=== PATIENT | male | born 1945 | race Caucasian/White ===

== ENCOUNTER 2017-05-03 12:30 | Inpatient (IN) ==
[2017-05-03] MEDS ORDERED: IOPAMIDOL 100 ML BOTTLE IJ ONE (12:31)
[2017-05-03] MEDS ORDERED: 0.9 % SODIUM CHLORIDE 1,000 ML IV ONE ×2 (12:33→15:00)
[2017-05-03] MEDS ORDERED: PIPERACILLIN SODIUM/TAZOBACTAM 4.5 GM in DEXTROSE 5% IN WATER 50 ML IV ONE (12:47)
--- NOTE | 2017-05-03 12:47 | Emergency Department Note ---
SOB HPI - General Chief Complaint: Shortness of Breath/Dyspnea Stated Complaint: sob Time Seen by Provider: 05/03/17 12:33 Source: patient Mode of arrival: ambulatory Limitations: no limitations - History of Present Illness 71 year old male presenting with acute onset shortness of breath, nausea and sharp pain in center of chest and back. Patient underwent urologic surgery on for resection of bladder tumor in [place], with catheter removal yesterday. Was sitting up after taking a Hydrocodone at roughly 11:45 when he developed sudden onset shortness of breath, increased work of breathing, and panic sensation. No history of DVT in the past. - Related Data Home Medications Medication Instructions Recorded Confirmed Freestyle flash test strips MISCELLANE .COMPLEX 11/01/14 04/12/17 aspirin 81 mg tablet,delayed 81 mg PO QDAY tab 11/01/14 04/12/17 release meloxicam 15 mg tablet 15 mg PO QDAY tab 11/01/14 04/12/17 multivitamin PO 11/01/14 04/12/17 Calcium Carbonate/Vitamin D3 See Dose Instructions PO .COMPLEX 03/21/15 04/12/17 [Calcium 500-Vit D3 400 Tablet] tab amoxicillin 500 mg tablet 2,000 mg PO .COMPLEX tab 03/21/15 04/12/17 Methotrexate Sodium [Methotrexate] 25 mg PO QWEEK tab 04/18/16 04/12/17 ascorbic acid (vitamin C) 1,000 mg 1,000 mg PO QDAY tab 04/18/16 04/12/17 tablet cyanocobalamin (vit B-12) 5,000 5,000 mcg SUBLINGUAL QDAY 04/18/16 04/12/17 mcg sublingual tablet alfuzosin ER 10 mg tablet,extended 10 mg PO QDAY 30 Days #30 tab 08/16/16 release 24 hr ipratropium bromide 42 mcg (0.06 1 spray INTRANASAL QID 30 Days ml 08/16/1612/20 %) nasal spray Oxygen at HS 1 pkg .ROUTE .MEDSUPPLY 05/03/17 05/03/17 Pen Needle, Diabetic [Unifine 0 unit .ROUTE .MEDSUPPLY 05/03/17 05/03/17 Pentips Plus] Previous Rx's Medication Instructions Recorded simvastatin 20 mg tablet 20 mg PO QPM #90 tab 05/21/16 metformin ER 500 mg 1,000 mg PO QDAY #180 tab 09/03/16 tablet,extended release 24hr omeprazole 40 mg capsule,delayed 40 mg PO QDAY #90 cap 09/03/16 release spironolactone 25 mg tablet 25 mg PO BID 90 Days #180 tab 11/05/16 glipizide ER 5 mg tablet, extended 5 mg PO BID #180 tab 11/27/16 release 24 hr budesonide-formoterol HFA 160 2 puff INHALATION BID #10.2 g 04/12/17 mcg-4.5 mcg/actuation aerosol inhaler hydrocodone 10 mg-acetaminophen 1 tab PO BID PRN #90 tab 04/12/17 325 mg tablet losartan 50 mg tablet 50 mg PO QDAY 90 Days #90 tab 04/15/17 duloxetine 60 mg capsule,delayed 60 mg PO QDAY #90 cap 04/22/17 release insulin detemir 100 unit/mL (3 mL) 25 unit SUB-Q QDAY #22.5 ml 05/03/17 subcutaneous pen Allergies Allergy/AdvReac Type Severity Reaction Status Date / Time gabapentin AdvReac Severe Swelling Verified 04/12/17 11:32 Review of Systems All systems ED: reviewed and negative except as stated. Past Medical History - Past Medical History Attestation: Yes: The following information was validated with the patient. Source: nursing notes reviewed Medical history: Reports: other Surgical history ED: Reports: knee replacement - Social History smoking status: Former smoker Physical Exam Limitations: no limitations General appearance: alert, anxious, in distress (increased work of breathing) Head: atraumatic, normocephalic Eye: Present: normal appearance, PERRL, EOMI ENT: normal exam, normal oropharynx, mucous membranes dry Neck: Present: normal inspection, full ROM Chest: Present: normal inspection, symmetric chest wall rise Respiratory: Present: respiratory distress, wheezes, accessory muscle use, prolonged expiratory phase Cardiovascular: Present: tachycardia, normal heart sounds. Absent: systolic murmur, diastolic murmur, rubs, gallop Abdominal: Present: soft, distention, tenderness. Absent: guarding Abdominal tenderness: Present: epigastrium, mild Extremities: Present: normal inspection, full ROM. Absent: tenderness Course Vital Signs Temperature 101.6 F H 05/03/17 12:30 Pulse Rate 137 H 05/03/17 12:30 Respiratory Rate 18 05/03/17 12:30 Blood Pressure 177/87 05/03/17 12:30 Pulse Oximetry (%) 91 05/03/17 12:30 Temperature 103.2 F H 05/03/17 14:37 Pulse Rate 138 H 05/03/17 14:32 Respiratory Rate 20 05/03/17 14:32 Blood Pressure 107/61 05/03/17 14:32 Pulse Oximetry (%) 95 05/03/17 14:32 Shortness of Breath/Dyspnea - [facility] Narrative Medical decision making narrative: Wells PE score 9, indicating high probability of PE. Underwent CT angiogram which was negative for acute pulmonary embolism. Patient met SIRS criteria with temp elevation to 101.3, tachycardia, started on Zosyn 4.5g IV once, and given Rocephin 2g IV. Patient demonstrating leukopenia, 3.8 with elevated venous lactic acid. Given 1L NS bolus, admitted for urosepsis in serious condition, Dr. Ring hospitalist who accepted admission at 14:45 to telemetry unit. - Lab Data Lab results reviewed: Yes I reviewed the patient's lab results. Result diagrams: 05/03/17 12:54 05/03/17 12:53 Lab Results 05/03/17 05/03/17 05/03/17 Range/Units 12:53 12:54 12:54 WBC 3.1 L (4.5-11.0) K/mcL RBC 4.51 (4.50-5.90) M/mcL Hgb 13.9 (13.5-16.5) g/dL Hct 41.5 (41.0-55.0) % POC Hct 44.0 (41.0-55.0) % MCV 92.0 (80.0-100.0) fL MCH 30.8 (26.0-34.0) pg MCHC 33.4 (31.0-36.0) g/dL RDW 16.3 H (11.5-14.5) % Plt Count 154 (140-440) K/mcL MPV 7.8 (7.4-10.4) fL Gran % 79.1 H (38.0-78.0) % Lymph % (Auto) 16.9 (15.5-49.0) % [place] % (Auto) 0.4 L (1.0-12.0) % Eos % (Auto) 3.4 (0.0-7.0) % Baso % (Auto) 0.2 (0.0-2.0) % Gran # 2.5 (1.8-8.0) K/mcL Lymph # (Auto) 0.5 L (1.5-4.8) K/mcL [place] # (Auto) 0 L (0.1-0.9) K/mcL Eos # (Auto) 0.1 (0.0-0.7) K/mcL Baso # (Auto) 0 (0.0-0.3) K/mcL PT 13.0 (11.9-14.5) sec INR 1.0 (0.9-1.1) D-Dimer 0.40 (0.00-0.40) ug/ml VBG Lactic Acid (0.5-2.2) mmol/L POC Sodium 136 (133-145) mmol/L Sodium 134 (133-145) mmol/L POC Potassium 4.5 (3.3-5.1) mmol/L Potassium 4.6 (3.3-5.1) mmol/L POC Chloride 96 (96-108) mmol/L Chloride 93 L (96-108) mmol/L Carbon Dioxide 22 (22-30) mmol/L POC Total CO2 27 (22-30) mmol/L Anion Gap 19.0 H (8-16) POC BUN 31 H (8-23) mg/dl BUN 26 H (8-23) mg/dl Creatinine 0.9 (0.7-1.2) mg/dl POC Creatinine 0.8 (0.7-1.2) mg/dl GFR Calculation 87 Glucose 232 H (70-105) mg/dL POC Glucose 224 H (70-105) mg/dL Calcium 9.4 (8.6-10.4) mg/dl POC WB Ioniz Calcium 1.21 (1.16-1.32) mmol/L Total Bilirubin 0.3 (0.0-1.0) mg/dL AST 19 (0-37) U/l ALT 18 (0-40) U/l Alkaline Phosphatase 73 (39-117) U/L Total Creatine Kinase 95 (24-195) IU/L CK-MB (CK-2) 1.7 (0-4.9) ng/ml Troponin T (0-0.03) ng/ml Total Protein 7.2 (5.9-8.4) gm/dL Albumin 4.3 (3.2-5.2) gm/dL Globulin 2.9 (2.2-3.7) gm/dL Albumin/Globulin Ratio 1.5 (1.0-2.3) Lipase 15 (7-60) U/L Urine Color Urine Appearance Urine pH (5.0-9.0) Ur Specific [place] (1.000-1.035) Urine Protein (NEG) mg/dL Urine Glucose (UA) (NEG) mg/dL Urine Ketones (NEG) mg/dL Urine Occult Blood (<0.03) mg/dL Urine Nitrate (NEG) Urine Bilirubin (NEG) mg/dL Urine Urobilinogen (NEG) mg/dL Ur Leukocyte Esterase (NEG) /uL Urine RBC (0-1) /hpf Urine WBC (0-4) /hpf Ur Squamous Epith Cells (0-4) /hpf Urine Bacteria (0) /hpf Urine Mucus (0) /hpf Ur Culture Indicated? 05/03/17 05/03/17 05/03/17 Range/Units 12:54 12:54 13:15 WBC (4.5-11.0) K/mcL RBC (4.50-5.90) M/mcL Hgb (13.5-16.5) g/dL Hct (41.0-55.0) % POC Hct (41.0-55.0) % MCV (80.0-100.0) fL MCH (26.0-34.0) pg MCHC (31.0-36.0) g/dL RDW (11.5-14.5) % Plt Count (140-440) K/mcL MPV (7.4-10.4) fL Gran % (38.0-78.0) % Lymph % (Auto) (15.5-49.0) % [place] % (Auto) (1.0-12.0) % Eos % (Auto) (0.0-7.0) % Baso % (Auto) (0.0-2.0) % Gran # (1.8-8.0) K/mcL Lymph # (Auto) (1.5-4.8) K/mcL [place] # (Auto) (0.1-0.9) K/mcL Eos # (Auto) (0.0-0.7) K/mcL Baso # (Auto) (0.0-0.3) K/mcL PT (11.9-14.5) sec INR (0.9-1.1) D-Dimer (0.00-0.40) ug/ml VBG Lactic Acid 3.6 H (0.5-2.2) mmol/L POC Sodium (133-145) mmol/L Sodium (133-145) mmol/L POC Potassium (3.3-5.1) mmol/L Potassium (3.3-5.1) mmol/L POC Chloride (96-108) mmol/L Chloride (96-108) mmol/L Carbon Dioxide (22-30) mmol/L POC Total CO2 (22-30) mmol/L Anion Gap (8-16) POC BUN (8-23) mg/dl BUN (8-23) mg/dl Creatinine (0.7-1.2) mg/dl POC Creatinine (0.7-1.2) mg/dl GFR Calculation Glucose (70-105) mg/dL POC Glucose (70-105) mg/dL Calcium (8.6-10.4) mg/dl POC WB Ioniz Calcium (1.16-1.32) mmol/L Total Bilirubin (0.0-1.0) mg/dL AST (0-37) U/l ALT (0-40) U/l Alkaline Phosphatase (39-117) U/L Total Creatine Kinase (24-195) IU/L CK-MB (CK-2) (0-4.9) ng/ml Troponin T < 0.01 (0-0.03) ng/ml Total Protein (5.9-8.4) gm/dL Albumin (3.2-5.2) gm/dL Globulin (2.2-3.7) gm/dL Albumin/Globulin Ratio (1.0-2.3) Lipase (7-60) U/L Urine Color Yellow Urine Appearance Cloudy Urine pH 6.0 (5.0-9.0) Ur Specific [place] 1.021 (1.000-1.035) Urine Protein 100 A (NEG) mg/dL Urine Glucose (UA) >=500 A (NEG) mg/dL Urine Ketones 5/tr A (NEG) mg/dL Urine Occult Blood 0.03 A (<0.03) mg/dL Urine Nitrate Neg (NEG) Urine Bilirubin Neg (NEG) mg/dL Urine Urobilinogen Neg (NEG) mg/dL Ur Leukocyte Esterase 500 A (NEG) /uL Urine RBC 59 H (0-1) /hpf Urine WBC > 182 H (0-4) /hpf Ur Squamous Epith Cells 0 (0-4) /hpf Urine Bacteria Few A (0) /hpf Urine Mucus Many A (0) /hpf Ur Culture Indicated? Yes - Radiology Data Radiology results reviewed: Yes I reviewed the patient's radiology results. Disposition Pt seen by LINEN ROOM WORKER/PA only: No Clinical Impression: Sepsis Qualifiers: Sepsis type: Escherichia coli Qualified Code(s): A41.51 - Sepsis due to Escherichia coli [E. coli] Disposition: Xfer As Inpt ([facility]) Condition: Serious Referrals: Herve Saldaña MD [Primary Care Provider] -
[2017-05-03] MEDS ORDERED: PIPERACILLIN SODIUM/TAZOBACTAM 4.5 GM in 0.9 % SODIUM CHLORIDE 100 ML IV ONE (13:00)
[2017-05-03 13:25] LABS: Basophils # (Auto) 0 K/mcL (0.0-0.3); Basophils % (Auto) 0.2 % (0.0-2.0); Eosinophils # (Auto) 0.1 K/mcL (0.0-0.7); Eosinophils % (Auto) 3.4 % (0.0-7.0); Granulocytes % (Auto) 79.1 % (38.0-78.0); Lymphocytes # (Auto) 0.5 K/mcL (1.5-4.8); Lymphocytes % (Auto) 16.9 % (15.5-49.0); Mean Corpuscular HGB Conc 33.4 g/dL (31.0-36.0); Mean Corpuscular Hemoglobin 30.8 pg (26.0-34.0); Monocytes # (Auto) 0 K/mcL (0.1-0.9); Monocytes % (Auto) 0.4 % (1.0-12.0); Platelet Count 154 K/mcL (140-440); RBC 4.51 M/mcL (4.50-5.90); Red Cell Distribution Width 16.3 % (11.5-14.5)
[2017-05-03 13:52] LABS: Appearance,Urine CLOUDY; Bacteria,Urine FEW /hpf (0); Bilirubin,Urine NEG (NEG); Color,Urine YELLOW; Glucose,Urine (UA) >=500 mg/dL (NEG); Leukocyte Esterase,Urine 500 /uL (NEG); Mucus,Urine MANY /hpf (0); Nitrate,Urine NEG (NEG); Protein,Urine 100 mg/dL (NEG); Specific Gravity,Urine 1.021 (1.000-1.035); Urine Blood 0.03 mg/dL (<0.03); Urine RBC 59 /hpf (0-1); Urine Squamous Epithelial Cell 0 /hpf (0-4); Urine WBC > 182 /hpf (0-4); Urobilinogen,Urine NEG (NEG)
[2017-05-03] MEDS ORDERED: cefTRIAXone 2 GM VIAL IV ONE (13:55)
[2017-05-03 13:57] LABS: ALT/SGPT 18 U/l (0-40); Albumin 4.3 gm/dL (3.2-5.2); Albumin/Globulin Ratio 1.5 (1.0-2.3); Alkaline Phosphatase 73 U/L (39-117); Blood Urea Nitrogen 26 mg/dl (8-23); Creatine Kinase 95 IU/L (24-195); Creatine Kinase MB 1.7 ng/ml (0-4.9); Lipase 15 U/L (7-60)
--- NOTE | 2017-05-03 14:11 | Cat Scan Report ---
CLINICAL INFORMATION: Reason for Exam:sob, back pain COMPARISON: 03/22/17 TECHNIQUE: Axial images obtained through the chest. intravenous contrast administration was administered, and scanning was performed during pulmonary arterial phase. Sagittally and coronally reformatted images were obtained. MIP reformatted images. FINDINGS: The pulmonary arteries are normal with no intraluminal filling defects. The aorta is normal in caliber. There are scattered plaques along the wall of the aorta as well as within the coronary arteries. The overall heart size is normal. The lungs are clear with no mass or infiltrate. Minor dependent atelectasis is present posteriorly in the right lower lobe. No pleural effusion or abnormally enlarged lymph nodes are present. There has been no significant change from the prior exam. There is degenerative disc disease and arthritis throughout the thoracic spine. No lytic or blastic metastasis are present. There is an old stable mild wedge compression deformity at T12. IMPRESSION: No acute abnormality Dr. Arthur was called with the results Interpreted and Authenticated by: Ken Castro 05/03/17
[2017-05-03] MEDS ORDERED: ACETAMINOPHEN 325 MG TABLET PO ONE (14:33)
[2017-05-03] MEDS ORDERED: ONDANSETRON 4 MG/2 ML VIAL IV PRN ×2 (14:45→17:13)
[2017-05-03] MEDS ORDERED: DEXTROSE 31 GM ORAL.SUSP PO PRN (17:13)
[2017-05-03] MEDS ORDERED: DEXTROSE 50% 50 ML VIAL IV PRN (17:13)
[2017-05-03] MEDS: 0.9 % SODIUM CHLORIDE 1,000 ML IV SCH (17:53)
[2017-05-03] MEDS: INSULIN LISPRO 1 UNIT/0.01 ML UNIT SQ SCH ×2 (19:08→21:03)
[2017-05-03] MEDS ORDERED: HYDROcodone/APAP 10/325MG TABLET PO PRN (19:28)
--- NOTE | 2017-05-03 19:30 | Internal Med History&Physical ---
Medical - H&P: HPI Patient information: Note initiated : 05/03/17 at 7:28 pm Service Date, if different from initiated Date: [] Patient: Grayson Davila a 71 y/o M admitted on 05/03/17 for sob. Chief Complaint: nausea, dyspnea, chills. History of present illness: Mr. Davila is a 71 year old M with a history of hypertension, immune disease/ arteritis, COPD with chronic nocturnal hypoxia on oxygen, type 2 diabetes, bladder cancer status post cystoscopic resection on April 23 who presents with acute onset of symptoms. The patient had cystoscopy with resection of bladder tumors which were discovered after he had hematuria. This was done on April 23. Given his history of enlarged prostate, Singletary catheter was left in place for a week. He was seen in follow-up yesterday and Barber in the Singletary catheter was removed. He was on antibiotics for the first 5 days of his catheter being in place. He states that he did have a little bit of discharge around the urethral meatus while the catheter was in place. He did well afterwards. He is up about 5 times a night voiding. About 11:30 this morning he felt like he needed to have a bowel movement, walked in the bathroom, as he sat on the commode he had the onset of severe lower back pain running across the back just above the buttocks. He developed nausea but did not have emesis. He came in to the living room, to lay down. His noted that his lips had a bluish tint to them. He had chills and was shaking so badly she is unable to get an accurate blood pressure. I received a history of him having some pain in the center of the chest, however the patient denies having any chest pain. Because of his symptoms, his drove him to the emergency department as a live just a few minutes away, by 12:30 he was in the ED. Upon arrival, the patient was febrile with a temperature to 100.5, tachycardic with a pulse 130-140, with oxygen saturations in the low 90s. Given the history of chest pain, there is concern for PE, which was ruled out by CT angiogram. However, further evaluation revealed leukopenia as well as a floridly abnormal urine analysis. His lactate was elevated at 3.8. He was started on treatment for sepsis from presumptive urinary source. Patient had been doing well up until the acute events of today. He does have some dyspnea with exertion. He does have some chronic neuropathic pains, attributed to his arteritis. He does use oxygen at night, 2 L/m due to hypoxia from underlying COPD. He's had no diarrhea, no abdominal pain up until the acute events of today. As noted he had nausea, no emesis. No headache. He did not feel feverish at home, but he did have chills as noted. In the ED, he received fluid boluses, antibiotics, and is being admitted to the ICU on telemetry. Review of systems: Except as noted in history of present illness, the remainder of a 12 point review of systems is negative. Medical - H&P: PMH Medical history: Hypertension Type 2 diabetes with neuropathy Hypercholesterolemia Bladder cancer BPH with obstructive uropathy symptoms Gastroesophageal reflux disease with Wolfe's esophagus on recent EGD Autoimmune disease, initially diagnosed as giant cell arteritis, on weekly methotrexate Pulmonary hypertension COPD Nocturnal hypoxic respiratory failure, on 2 L oxygen at night History of zoster History of atrial fibrillation associated with sepsis in approximately 2009, resolved History of CVAs Dupuytren's contracture of right hand (Chronic) Parotitis (Acute) Obesity (Chronic) Inflammatory polyarthropathy (Chronic) Anemia (Chronic) Ulnar neuropathy (Chronic) Trochanteric bursitis (Chronic) Personal history of testicular cancer (Resolved) Spinal stenosis (Chronic) Rhinitis, allergic (Chronic) Chronic hoarseness (Chronic) Elevated PSA (Chronic), s/p biopsy Degeneration of cervical intervertebral disc (Chronic) Degeneration of lumbar or lumbosacral intervertebral disc (Chronic) Surgical history: History of tonsillectomy (Resolved), 1962 History of repair of rotator cuff (Resolved), 1989 History of prostate biopsy (Resolved), 2010, 2016, benign History of orchiectomy (Resolved), left, 1986 History of laryngoscopy (Resolved) History of knee replacement procedure of right knee (Resolved), 2014 History of hernia surgery (Resolved) History of esophagogastroduodenoscopy (Resolved) History of colonoscopy (Resolved) History of carpal tunnel release (Resolved), 2007 Hx of open brain biopsy (Resolved), 1997 S/P arthroscopic surgery of left knee (Resolved), 2014 History of left knee replacement (Resolved), 2015 Pertinent family history: Father had CAD and DM; Mother had asthma; brother and sister with HTN. Social history: Quit smoking 20 years ago. Rare alcohol use. Lives wit his . Medical - H&P: Meds Home Medications Medication Instructions Recorded Confirmed Type Freestyle flash test strips 1 each MISCELLANE .COMPLEX 11/01/14 05/03/17 History aspirin 81 mg tablet,delayed 81 mg PO QDAY tab 11/01/14 05/03/17 History release meloxicam 15 mg tablet 15 mg PO QDAY tab 11/01/14 05/03/17 History multivitamin 1 tab PO DAILY 11/01/14 05/03/17 History Calcium Carbonate/Vitamin D3 See Dose Instructions PO BID tab 03/21/15 History [Calcium 500-Vit D3 400 Tablet] amoxicillin 500 mg tablet 2,000 mg PO .COMPLEX tab 03/21/15 05/03/17 History Methotrexate Sodium [Methotrexate] 25 mg PO QWEEK tab 04/18/16 05/03/17 History ascorbic acid (vitamin C) 1,000 mg 1,000 mg PO QDAY tab 04/18/16 05/03/17 History tablet cyanocobalamin (vit B-12) 5,000 500 mcg SUBLINGUAL QDAY 04/18/16 05/03/17 History mcg sublingual tablet simvastatin 20 mg tablet 20 mg PO QPM #90 tab 05/21/16 05/03/17 Rx alfuzosin ER 10 mg tablet,extended 10 mg PO QDAY 30 Days #30 tab 08/16/16 History release 24 hr ipratropium bromide 42 mcg (0.06 1 spray INTRANASAL QID 30 Days ml 08/16/16 History %) nasal spray metformin ER 500 mg 1,000 mg PO QDAY #180 tab 09/03/16 05/03/17 Rx tablet,extended release 24hr omeprazole 40 mg capsule,delayed 40 mg PO QDAY #90 cap 09/03/16 05/03/17 Rx release spironolactone 25 mg tablet 25 mg PO BID 90 Days #180 tab 11/05/16 05/03/17 Rx glipizide ER 5 mg tablet, extended 5 mg PO BID #180 tab 11/27/16 05/03/17 Rx release 24 hr budesonide-formoterol HFA 160 2 puff INHALATION BID #10.2 g 04/12/17 05/03/17 Rx mcg-4.5 mcg/actuation aerosol inhaler hydrocodone 10 mg-acetaminophen 1 tab PO BID PRN #90 tab 04/12/17 05/03/17 Rx 325 mg tablet losartan 50 mg tablet 50 mg PO QDAY 90 Days #90 tab 04/15/17 05/03/17 Rx duloxetine 60 mg capsule,delayed 60 mg PO QDAY #90 cap 04/22/17 05/03/17 Rx release Oxygen at HS 1 pkg .ROUTE .MEDSUPPLY 05/03/17 05/03/17 History Pen Needle, Diabetic [Unifine 0 unit .ROUTE .MEDSUPPLY 05/03/17 05/03/17 History Pentips Plus] insulin detemir 100 unit/mL (3 mL) 25 unit SUB-Q QDAY #22.5 ml 05/03/17 Rx subcutaneous pen Allergies Allergy/AdvReac Type Severity Reaction Status Date / Time gabapentin AdvReac Severe Swelling Verified 04/12/17 11:32 Medical - H&P: Exam - Constitutional Vitals: Temp Pulse Resp BP Pulse Ox 98.4 F 125 H 16 116/62 96 05/03/17 16:10 05/03/17 16:16 05/03/17 16:10 05/03/17 16:16 05/03/17 18:37 Exam: General: Alert, in no acute distress HEENT: Normocephalic. Pupils are equally round and reactive to light. Sclera are anicteric. No conjunctival injection. Oropharynx is with moist mucous membranes, no lip or gum lesions. Tongue is midline. Neck: Supple, no meningismus. No thyromegaly. Chest: Clear to auscultation bilaterally with no rales or wheezes. No accessory muscle use. Cardiovascular: Regular rate and rhythm without murmur gallop or rub. Carotid pulses are 2+ without bruit. There is no lower extremity edema. JVP is normal. Abdomen: Soft, active bowel sounds, mild, diffuse tenderness without guarding or rebound. No hepatosplenomegaly. Skin: Warm, dry. No rash. Skin turgor is normal Musculoskeletal: No joint erythema or tenderness. Normal range of motion in the upper and lower extremities. Strength 5/5 in upper and lower extremities. Digits without cyanosis or clubbing. Neuro: Alert, oriented X3. Cranial nerves II through XII grossly intact. Sensation decreased to light touch in LE's. Psychiatric: Affect and orientation are normal. Good insight. Medical - H&P: Reslt - Labs CBC & Chem 7: 05/03/17 12:54 05/03/17 12:53 Labs: Short CBC 05/03/17 Range/Units 12:54 WBC 3.1 L (4.5-11.0) K/mcL Hgb 13.9 (13.5-16.5) g/dL Hct 41.5 (41.0-55.0) % Plt Count 154 (140-440) K/mcL BMP 05/03/17 12:53 Sodium 134 Potassium 4.6 Chloride 93 L Carbon Dioxide 22 BUN 26 H Creatinine 0.9 Glucose 232 H Calcium 9.4 Cardiac Enzymes 05/03/17 05/03/17 Range/Units 12:53 12:54 Total Creatine Kinase 95 (24-195) IU/L CK-MB (CK-2) 1.7 (0-4.9) ng/ml Troponin T < 0.01 (0-0.03) ng/ml Liver Function 05/03/17 Range/Units 12:53 Total Bilirubin 0.3 (0.0-1.0) mg/dL AST 19 (0-37) U/l ALT 18 (0-40) U/l Alkaline Phosphatase 73 (39-117) U/L Albumin 4.3 (3.2-5.2) gm/dL Urine 05/03/17 Range/Units 13:15 Urine Color Yellow Urine Appearance Cloudy Urine pH 6.0 (5.0-9.0) Ur Specific [place] 1.021 (1.000-1.035) Urine Protein 100 A (NEG) mg/dL Urine Glucose (UA) >=500 A (NEG) mg/dL - EKG Data EKG comments: ST at 140 with ant-lat ST depressions - Impressions CTA Chest FINDINGS: The pulmonary arteries are normal with no intraluminal filling defects. The aorta is normal in caliber. There are scattered plaques along the wall of the aorta as well as within the coronary arteries. The overall heart size is normal. The lungs are clear with no mass or infiltrate. Minor dependent atelectasis is present posteriorly in the right lower lobe. No pleural effusion or abnormally enlarged lymph nodes are present. There has been no significant change from the prior exam. There is degenerative disc disease and arthritis throughout the thoracic spine. No lytic or blastic metastasis are present. There is an old stable mild wedge compression deformity at T12. IMPRESSION: No acute abnormality Medical - H&P: A/P (1) Sepsis Current visit: Yes Status: Acute (2) UTI (urinary tract infection) Current visit: Yes Status: Acute (3) Chronic respiratory failure with hypoxia Current visit: Yes Status: Chronic (4) BPH with obstruction/lower urinary tract symptoms Current visit: Yes Status: Chronic (5) DM type 2 (diabetes mellitus, type 2) Current visit: No Status: Chronic (6) Autoimmune disease Problem details: Dr. Anne Current visit: No Status: Chronic - Narrative A/P Narrative: 71-year-old male with multiple medical problems, presenting with abrupt onset of dyspnea, lightheadedness, found to be leukopenic with fever, tachycardia and elevated lactate consistent with sepsis, apparent urinary source. Sepsis from urinary source. Lactate 3.8. Hemodynamics are stable, this is not severe sepsis. Feeling improved when I see him after initial fluid resuscitation. Suspect this is a catheter associated UTI, present on admission , from chronic Singletary he had at home for 1 week following bladder cancer resection. Plan: #1 inpatient admission to telemetry #2 fluid resuscitation, trend lactate #3 continue antibiotics, ceftriaxone given in the ED #4 follow-up cultures, both blood and urine BPH with lower urinary tract symptoms. Patient had episodes of nocturia 5 last night. We'll need to assure he is able to fully empty his bladder now that the catheter is removed yesterday. Plan: Continue alpha ebony, monitor PVR, may need intermittent catheterization. Type 2 diabetes mellitus with neuropathy. On metformin, glipizide and Levemir at home. No evidence of DKA or hyperosmolar state. Plan: Continue Levemir, add sliding scale insulin, hold metformin and glipizide during acute illness, controlled carbohydrate diet. Hypertension. Blood pressure is initially elevated at presentation, has now normalized. Plan: Continue losartan, hold for hypotension. COPD with chronic hypoxic respiratory failure at night. Uses O2 at 2 L/m night Plan: Oxygen protocol, maintain sats above 90%, continue home regimen. Autoimmune disease with immunosuppression on weekly methotrexate. Symptoms appear quiesced and at this point. Plan: Hold methotrexate with acute sepsis. Prophylaxis: Lovenox, PPI CODE STATUS: Full code Medical - H&P: Qual - VTE Deep Vein Thrombosis/Pulmonary Embolism Present on Admission: No
[2017-05-03 19:51] LABS: Hemoglobin A1C 7.9 % HGB (4.0-6.0)
[2017-05-03] MEDS: BUDESONIDE INH SCH (21:04)
[2017-05-03] MEDS: SIMVASTATIN 20 MG TABLET PO SCH (21:04)
[2017-05-03] MEDS: FORMOTEROL INH SCH (21:04)
[2017-05-03] MEDS: SPIRONOLACTONE 25 MG TABLET PO SCH (21:04)
[2017-05-04] MEDS: ACETAMINOPHEN 325 MG TABLET PO PRN ×2 (01:49→19:02)
[2017-05-04] MEDS: 0.9 % SODIUM CHLORIDE 1,000 ML IV SCH ×3 (03:10→22:56)
[2017-05-04 05:34] LABS: Mean Cell Volume 92.6 fL (80.0-100.0); Mean Corpuscular HGB Conc 33.9 g/dL (31.0-36.0); Mean Corpuscular Hemoglobin 31.4 pg (26.0-34.0); Platelet Count 111 K/mcL (140-440); RBC 3.69 M/mcL (4.50-5.90); Red Cell Distribution Width 16.6 % (11.5-14.5)
[2017-05-04 05:46] LABS: ALT/SGPT 18 U/l (0-40); Albumin 3.2 gm/dL (3.2-5.2); Albumin/Globulin Ratio 1.3 (1.0-2.3); Alkaline Phosphatase 49 U/L (39-117); Blood Urea Nitrogen 25 mg/dl (8-23)
[2017-05-04 06:18] LABS: Anisocytosis 2+ (NONE SEEN); Band Neutrophils % 18 % (0-10); Basophils % (Manual) 1 % (0-2); Lymphocytes % 2 % (15-49); Monocytes % (Manual) 4 % (1-12); Platelet Estimate DECREASED (NORMAL); RBC Morphology ABNORM (NORMAL); Segmented Neutrophils % 75 % (38-78)
[2017-05-04] MEDS: INSULIN LISPRO 1 UNIT/0.01 ML UNIT SQ SCH ×4 (07:58→20:44)
[2017-05-04] MEDS: OMEPRAZOLE 20 MG CAPSULE PO SCH (07:59)
[2017-05-04] MEDS: ASPIRIN 81 MG TAB.CHEW PO SCH (09:15)
[2017-05-04] MEDS: MELOXICAM 7.5 MG TABLET PO SCH (09:15)
[2017-05-04] MEDS: LOSARTAN 50 MG TABLET PO SCH (09:15)
[2017-05-04] MEDS: SPIRONOLACTONE 25 MG TABLET PO SCH ×2 (09:15→20:45)
[2017-05-04] MEDS: DULoxetine 30 MG CAPSULE PO SCH (09:15)
[2017-05-04] MEDS: ENOXAPARIN 40 MG/0.4 ML SYRINGE SQ SCH (09:16)
[2017-05-04] MEDS: INSULIN GLARGINE, HUMAN 1 UNIT/0.01 ML SQ SCH (09:16)
[2017-05-04] MEDS: cefTRIAXone 2 GM VIAL IV SCH (09:17)
[2017-05-04] MEDS: BUDESONIDE INH SCH ×2 (11:45→20:44)
[2017-05-04] MEDS: FORMOTEROL INH SCH ×2 (11:45→20:44)
[2017-05-04] MEDS: ALFUZOSIN HCL 10 MG PO SCH (11:45)
[2017-05-04] MEDS: POLYVINYL ALCOHOL OPHTH DROPS 15ML BOTTLE OU PRN ×2 (12:33→16:11)
[2017-05-04] MEDS ORDERED: cefTRIAXone 2 GM in DEXTROSE 5% IN WATER 50 ML IV SCH (13:00)
--- NOTE | 2017-05-04 17:07 | Internal Med Progress Note ---
Medical - PN: Subj Patient information: Note initiated : 05/04/17 at 5:04 pm Service Date, if different from initiated Date: [] Patient: Grayson Davila a 71 y/o M admitted on 05/03/17 for sob. Chief Complaint: follow up sepsis Interval history: May 03 Mr. Davila is a 71 year old M with a history of hypertension, immune disease/ arteritis, COPD with chronic nocturnal hypoxia on oxygen, type 2 diabetes, bladder cancer status post cystoscopic resection on April 23 who presents with acute onset of symptoms. The patient had cystoscopy with resection of bladder tumors which were discovered after he had hematuria. This was done on April 23. Given his history of enlarged prostate, Singletary catheter was left in place for a week. He was seen in follow-up yesterday and Venetie Ira in the Singletary catheter was removed. He was on antibiotics for the first 5 days of his catheter being in place. He states that he did have a little bit of discharge around the urethral meatus while the catheter was in place. He did well afterwards. He is up about 5 times a night voiding. About 11:30 this morning he felt like he needed to have a bowel movement, walked in the bathroom, as he sat on the commode he had the onset of severe lower back pain running across the back just above the buttocks. He developed nausea but did not have emesis. He came in to the living room, to lay down. His noted that his lips had a bluish tint to them. He had chills and was shaking so badly she is unable to get an accurate blood pressure. I received a history of him having some pain in the center of the chest, however the patient denies having any chest pain. Because of his symptoms, his drove him to the emergency department as a live just a few minutes away, by 12:30 he was in the ED. Upon arrival, the patient was febrile with a temperature to 100.5, tachycardic with a pulse 130-140, with oxygen saturations in the low 90s. Given the history of chest pain, there is concern for PE, which was ruled out by CT angiogram. However, further evaluation revealed leukopenia as well as a floridly abnormal urine analysis. His lactate was elevated at 3.8. He was started on treatment for sepsis from presumptive urinary source. Vern 30 Patient's blood cultures came positive just after midnight with gram-negative rods. Lactate fluctuated before normalizing. AM labs with significant leukocytosis and bandemia now. He feels much better this morning. Still some lower abdominal pain at times, this improves after voiding. May represent bladder spasm. Had a normal bowel movement yesterday. No fevers or chills. Appetite is good. - Constitutional Vitals: Vital Signs Temp Pulse Resp BP Pulse Ox 99.0 F H 112 H 18 161/83 97 05/04/17 16:34 05/04/17 08:30 05/04/17 16:34 05/04/17 16:34 05/04/17 16:34 Period Temp Pulse Resp BP Sys/Bo Pulse Ox Last 24 Hr 97.8 F-100.4 F 112-118 18-20 91-161/58-113 92-98 Intake and Output 05/04/17 05/04/17 05/04/17 05:59 13:59 21:59 Intake Total 1648 / 1648 3120 / 3120 500 / 500 Output Total 1045 / 1045 1125 / 1125 250 / 250 Balance 603 / 603 1994 250 / 250 Intake & Output: Intake & Output 05/04/17 05/04/17 05/04/17 05:59 13:59 21:59 Intake Total 1648 / 1648 3120 / 3120 500 / 500 Output Total 1045 / 1045 1125 / 1125 250 / 250 Balance 603 / 603 1994 250 / 250 Intake: IV 928 / 928 1000 / 1000 Sodium Chloride 0.9% 1,000 ml @ 928 / 928 1000 / 1000 100 mls/hr IV .Q10H [facility] Rx#: [id number] Oral 720 / 720 1400 / 1400 500 / 500 GI Tube Flush 720 / 720 Output: Void Amount 1045 / 1045 1125 / 1125 250 / 250 Other: Meal Lunch Percent of Meal Consumed 100% Feeding Ability Assist with Tray Set Up # Voids 1 1 2 # Bowel Movements 1 Exam: General: Sitting in chair in no acute distress, then develops lower abdominal spasm with discomfort Chest: Clear to auscultation, respirations unlabored Cardiovascular: Regular rate and rhythm Abdomen: Obese, distended, active bowel sounds, nontender Neuro: Alert, oriented, no acute distress Medical - PN: Obj Da - Labs CBC & Chem 7: 05/04/17 04:00 05/04/17 04:00 Labs: Abnormal Lab Results 05/04/17 05/04/17 05/03/17 04:00 04:00 23:15 WBC 15.1 H RBC 3.69 L Hgb 11.6 L Hct 34.2 L RDW 16.6 H Plt Count 111 L Gran % Long % (Auto) Lymph # (Auto) Long # (Auto) Band Neutrophils % 18 H Lymphocytes % 2 L Platelet Estimate Decreased A RBC Morphology Abnorm A Anisocytosis 2+ A VBG Lactic Acid 2.4 H Chloride Anion Gap POC BUN BUN 25 H Glucose 130 H POC Glucose Hemoglobin A1c Calcium 7.9 L Total Protein 5.6 L Urine Protein Urine Glucose (UA) Urine Ketones Urine Occult Blood Ur Leukocyte Esterase Urine RBC Urine WBC Urine Bacteria Urine Mucus 05/03/17 05/03/17 05/03/17 20:19 13:15 12:54 WBC RBC Hgb Hct RDW Plt Count Gran % Long % (Auto) Lymph # (Auto) [place] # (Auto) Band Neutrophils % Lymphocytes % Platelet Estimate RBC Morphology Anisocytosis VBG Lactic Acid 2.6 H 3.6 H Chloride Anion Gap POC BUN BUN Glucose POC Glucose Hemoglobin A1c Calcium Total Protein Urine Protein 100 A Urine Glucose (UA) >=500 A Urine Ketones 5/tr A Urine Occult Blood 0.03 A Ur Leukocyte Esterase 500 A Urine RBC 59 H Urine WBC > 182 H Urine Bacteria Few A Urine Mucus Many A 05/03/17 05/03/17 05/03/17 12:54 12:53 12:43 WBC 3.1 L RBC Hgb Hct RDW 16.3 H Plt Count Gran % 79.1 H Long % (Auto) 0.4 L Lymph # (Auto) 0.5 L Long # (Auto) 0 L Band Neutrophils % Lymphocytes % Platelet Estimate RBC Morphology Anisocytosis VBG Lactic Acid Chloride 93 L Anion Gap 19.0 H POC BUN 31 H BUN 26 H Glucose 232 H POC Glucose 224 H Hemoglobin A1c 7.9 H Calcium Total Protein Urine Protein Urine Glucose (UA) Urine Ketones Urine Occult Blood Ur Leukocyte Esterase Urine RBC Urine WBC Urine Bacteria Urine Mucus Microbiology 05/03/17 13:11 Blood Culture - Preliminary Blood 05/03/17 13:14 Urine Culture - Preliminary Urine - Clean Void Mid-Stream Gram negative bacillus 05/03/17 12:43 Blood Culture - Preliminary Blood Gram negative bacillus 05/03/17 16:27 MRSA (PCR) - Final Nose Meds: Medications Acetaminophen (Tylenol) 650 mg PO Q6HP PRN PRN Reason: PAIN/FEVER > 101 Last Admin: 05/04/17 01:49 Dose: 650 mg Hydrocodone Bitart/Acetaminophen ([place] 10/325mg) 1 tab PO Q4HP PRN PRN Reason: pain Artificial Tears (Artificial Tears Ophth Drops) 1 gtt OU Q2HP PRN PRN Reason: Dry Eye(s) Last Admin: 05/04/17 16:11 Dose: 1 gtt Aspirin (Aspirin) 81 mg PO DAILY [facility] Last Admin: 05/04/17 09:15 Dose: 81 mg Ceftriaxone Sodium (Rocephin) 2 gm IV DAILY [facility] Last Admin: 05/04/17 09:17 Dose: 2 gm Dextrose (Dextrose 50%) 0 ml IV UD PRN PRN Reason: Hypoglycemia Diagnostic Test (Pha) (Accu-Chek) 1 each FS ACHS [facility] Last Admin: 05/04/17 16:59 Dose: 1 each Duloxetine HCl (Cymbalta) 60 mg PO DAILY [facility] Last Admin: 05/04/17 09:15 Dose: 60 mg Enoxaparin Sodium (Lovenox) 40 mg SQ DAILY [facility] Last Admin: 05/04/17 09:16 Dose: 40 mg Glucose (Insta-Glucose) 15 gm PO PRN PRN PRN Reason: Hypoglycemia Sodium Chloride (Sodium Chloride 0.9%) 1,000 mls @ 100 mls/hr IV .Q10H [facility] Last Admin: 05/04/17 13:44 Dose: 100 mls/hr Insulin Glargine (Lantus) 25 unit SQ DAILY [facility] Last Admin: 05/04/17 09:16 Dose: 25 unit Insulin Human Lispro (Humalog) 0 unit SQ ACHS [facility] PRN Reason: Protocol Last Admin: 05/04/17 17:02 Dose: 6 unit Losartan Potassium (Cozaar) 50 mg PO DAILY [facility] Last Admin: 05/04/17 09:15 Dose: 50 mg Meloxicam (Mobic) 15 mg PO DAILY [facility] Last Admin: 05/04/17 09:15 Dose: 15 mg Omeprazole (Prilosec) 40 mg PO ACB [facility] Last Admin: 05/04/17 07:59 Dose: 40 mg Ondansetron HCl (Zofran) 4 mg IV Q4HP PRN PRN Reason: Nausea And Vomiting Alfuzosin Hcl [ Alfuzosin Hcl Er] 10 Mg Tablet 1 dose PO DAILY [facility] Last Admin: 05/04/17 11:45 Dose: Not Given Budesonide/Formoterol ( Symbicort 160-4.5 Mcg) Inhaler 2 dose INH BID [facility] Last Admin: 05/04/17 11:45 Dose: 2 dose Simvastatin (Zocor) 20 mg PO HS [facility] Last Admin: 05/03/17 21:04 Dose: 20 mg Spironolactone (Aldactone) 25 mg PO BID [facility] Last Admin: 05/04/17 09:15 Dose: 25 mg Medical - PN: A/P - Time Spent With Patient Total time spent is greater than 50% in coordination of care (as documented) at patient's floor/unit and/or counseling patient: (1) Sepsis Status: Acute Current Visit: Yes (2) UTI (urinary tract infection) Status: Acute Current Visit: Yes (3) Chronic respiratory failure with hypoxia Status: Chronic Current Visit: Yes (4) 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 Anne Status: Chronic Current Visit: No - Narrative A/P Narrative: 71-year-old male with multiple medical problems, presenting with abrupt onset of dyspnea, lightheadedness, found to be leukopenic with fever, tachycardia and elevated lactate consistent with sepsis, apparent urinary source. Sepsis from urinary source. Rex negative sepsis with bacteremia. Lactate initially normalized, then became mildly elevated, finally read normalizing this morning. Blood cultures positive just after midnight with gram-negative rods. Plan: Continue with IV fluids, continue with ceftriaxone, follow up final culture and sensitivities. BPH with lower urinary tract symptoms. Patient with variable PVRs from 100-200 mL range. Plan: Continue alpha ebony, continue to monitor PVR. Type 2 diabetes mellitus with neuropathy. On metformin, glipizide and Levemir at home. No evidence of DKA or hyperosmolar state. Plan: Continue Levemir and sliding scale insulin, controlled carbohydrate diet; hold metformin and glipizide during acute illness. Hypertension. Blood pressure is initially elevated at presentation, has now normalized. Plan: Continue losartan, hold for hypotension. COPD with chronic hypoxic respiratory failure at night. Uses O2 at 2 L/m night Plan: Oxygen protocol, maintain sats above 90%, continue home regimen. Autoimmune disease with immunosuppression on weekly methotrexate. Symptoms appear quiesced and at this point. Plan: Hold methotrexate with acute sepsis. Prophylaxis: Lovenox, PPI Medical - PN: Qual - VTE Deep Vein Thrombosis/Pulmonary Embolism Present on Admission: No
[2017-05-04] MEDS: SIMVASTATIN 20 MG TABLET PO SCH (20:45)
[2017-05-05 06:21] LABS: Mean Cell Volume 93.7 fL (80.0-100.0); Mean Corpuscular HGB Conc 32.8 g/dL (31.0-36.0); Mean Corpuscular Hemoglobin 30.8 pg (26.0-34.0); Platelet Count 96 K/mcL (140-440); RBC 3.89 M/mcL (4.50-5.90); Red Cell Distribution Width 16.6 % (11.5-14.5)
[2017-05-05 06:33] LABS: Anisocytosis 1+ (NONE SEEN); Band Neutrophils % 4 % (0-10); Basophils % (Manual) 1 % (0-2); Eosinophils % (Manual) 1 % (0-7); Lymphocytes % 8 % (15-49); Monocytes % (Manual) 8 % (1-12); Platelet Estimate DECREASED (NORMAL); RBC Morphology ABNORM (NORMAL); Segmented Neutrophils % 78 % (38-78)
[2017-05-05 06:37] LABS: ALT/SGPT 20 U/l (0-40); Albumin 3.1 gm/dL (3.2-5.2); Albumin/Globulin Ratio 1.1 (1.0-2.3); Alkaline Phosphatase 74 U/L (39-117); Blood Urea Nitrogen 13 mg/dl (8-23)
[2017-05-05] MEDS: OMEPRAZOLE 20 MG CAPSULE PO SCH (08:00)
[2017-05-05] MEDS: INSULIN GLARGINE, HUMAN 1 UNIT/0.01 ML SQ SCH (08:18)
[2017-05-05] MEDS: INSULIN LISPRO 1 UNIT/0.01 ML UNIT SQ SCH ×4 (08:18→21:58)
[2017-05-05] MEDS: ENOXAPARIN 40 MG/0.4 ML SYRINGE SQ SCH (08:19)
[2017-05-05] MEDS: SPIRONOLACTONE 25 MG TABLET PO SCH ×2 (08:21→21:59)
[2017-05-05] MEDS: ASPIRIN 81 MG TAB.CHEW PO SCH (08:21)
[2017-05-05] MEDS: LOSARTAN 50 MG TABLET PO SCH (08:21)
[2017-05-05] MEDS: MELOXICAM 7.5 MG TABLET PO SCH (08:33)
[2017-05-05] MEDS: DULoxetine 30 MG CAPSULE PO SCH (08:33)
[2017-05-05] MEDS: FORMOTEROL INH SCH ×2 (08:34→22:01)
[2017-05-05] MEDS: BUDESONIDE INH SCH ×2 (08:34→22:01)
[2017-05-05] MEDS: cefTRIAXone 2 GM VIAL IV SCH (08:34)
[2017-05-05] MEDS: 0.9 % SODIUM CHLORIDE 1,000 ML IV SCH (08:37)
--- NOTE | 2017-05-05 09:55 | Internal Med Progress Note ---
Medical - PN: Subj Patient information: Note initiated : 05/05/17 at 9:52 am Service Date, if different from initiated Date: [] Patient: Grayson Davila a 71 y/o M admitted on 05/03/17 for sob. Chief Complaint: f/u gram negative sepsis Interval history: May 03 Mr. Davila is a 71 year old M with a history of hypertension, immune disease/ arteritis, COPD with chronic nocturnal hypoxia on oxygen, type 2 diabetes, bladder cancer status post cystoscopic resection on April 23 who presents with acute onset of symptoms. The patient had cystoscopy with resection of bladder tumors which were discovered after he had hematuria. This was done on April 23. Given his history of enlarged prostate, Singletary catheter was left in place for a week. He was seen in follow-up yesterday and Unga in the Singletary catheter was removed. He was on antibiotics for the first 5 days of his catheter being in place. He states that he did have a little bit of discharge around the urethral meatus while the catheter was in place. He did well afterwards. He is up about 5 times a night voiding. About 11:30 this morning he felt like he needed to have a bowel movement, walked in the bathroom, as he sat on the commode he had the onset of severe lower back pain running across the back just above the buttocks. He developed nausea but did not have emesis. He came in to the living room, to lay down. His noted that his lips had a bluish tint to them. He had chills and was shaking so badly she is unable to get an accurate blood pressure. I received a history of him having some pain in the center of the chest, however the patient denies having any chest pain. Because of his symptoms, his drove him to the emergency department as a live just a few minutes away, by 12:30 he was in the ED. Upon arrival, the patient was febrile with a temperature to 100.5, tachycardic with a pulse 130-140, with oxygen saturations in the low 90s. Given the history of chest pain, there is concern for PE, which was ruled out by CT angiogram. However, further evaluation revealed leukopenia as well as a floridly abnormal urine analysis. His lactate was elevated at 3.8. He was started on treatment for sepsis from presumptive urinary source. May 04 Patient's blood cultures came positive just after midnight with gram-negative rods. Lactate fluctuated before normalizing. AM labs with significant leukocytosis and bandemia now. He feels much better this morning. Still some lower abdominal pain at times, this improves after voiding. May represent bladder spasm. Had a normal bowel movement yesterday. No fevers or chills. Appetite is good. May 05 Feeling better today. Blood and urine cultures with E. coli, sensitivity pending. No further lower abdomen/bladder spasm. Feeling pretty good at this time. No f/c, no n/v, no abdominal pain; having normal BM's - Constitutional Vitals: Vital Signs Temp Pulse Resp BP Pulse Ox 98.0 F 104 H 18 152/87 97 05/05/17 04:00 05/05/17 04:00 05/05/17 04:00 05/05/17 04:00 05/05/17 04:00 Period Temp Pulse Resp BP Sys/Bo Pulse Ox Last 24 Hr 97.4 F-100.9 F 104-119 17-20 128-165/83-104 96-98 Intake and Output 05/04/17 05/05/17 05/05/17 21:59 05:59 13:59 Intake Total 1390 / 1390 1100 / 1100 968 / 968 Output Total 1225 / 1225 1999 200 / 200 Balance 165 / 165 -900 / -900 768 / 768 Weight 245 lb 11.2 oz Intake & Output: Intake & Output 05/04/17 05/05/17 05/05/17 21:59 05:59 13:59 Intake Total 1390 / 1390 1100 / 1100 968 / 968 Output Total 1225 / 1225 1999 200 / 200 Balance 165 / 165 -900 / -900 768 / 768 Weight 245 lb 11.2 oz Intake: IV 920 / 920 968 / 968 Sodium Chloride 0.9% 1,000 ml @ 920 / 920 968 / 968 100 mls/hr IV .Q10H [facility] Rx#: [id number] Oral 1390 / 1390 180 / 180 Output: Void Amount 1225 / 1225 1999 200 / 200 Other: Meal Dinner Percent of Meal Consumed 75% Feeding Ability Assist with Tray Set Up # Voids 2 # Bowel Movements 1 General appearance: no acute distress - Respiratory Respiratory exam: Present: CTAB. Absent: accessory muscle use, rales, wheezes - Cardiovascular Cardiovascular exam: Present: normal rate and rhythm. Absent: diastolic murmur , systolic murmur - GI/Abdominal GI/Abdominal exam: Present: normal bowel sounds, firm. Absent: guarding, rebound, tenderness - Extremities Exam Extremities exam: Absent: pedal edema - Neurological Exam Neurological exam: Present: alert, oriented X3. Absent: motor sensory deficit - Psychiatric Psychiatric exam: Present: normal affect, normal mood Medical - PN: Obj Da - Labs CBC & Chem 7: 05/05/17 03:34 05/05/17 03:34 Labs: Abnormal Lab Results 05/05/17 05/05/17 05/04/17 03:34 03:34 04:00 WBC 15.1 H RBC 3.89 L 3.69 L Hgb 11.9 L 11.6 L Hct 36.4 L 34.2 L RDW 16.6 H 16.6 H Plt Count 96 L 111 L Gran % [place] % (Auto) Lymph # (Auto) [place] # (Auto) Band Neutrophils % 18 H Lymphocytes % 8 L 2 L Platelet Estimate Decreased A Decreased A RBC Morphology Abnorm A Abnorm A Anisocytosis 1+ A 2+ A VBG Lactic Acid Chloride Anion Gap POC BUN BUN Glucose 141 H POC Glucose Hemoglobin A1c Calcium 8.5 L Total Protein Albumin 3.1 L Urine Protein Urine Glucose (UA) Urine Ketones Urine Occult Blood Ur Leukocyte Esterase Urine RBC Urine WBC Urine Bacteria Urine Mucus 05/04/17 05/03/17 05/03/17 04:00 23:15 20:19 WBC RBC Hgb Hct RDW Plt Count Gran % [place] % (Auto) Lymph # (Auto) [place] # (Auto) Band Neutrophils % Lymphocytes % Platelet Estimate RBC Morphology Anisocytosis VBG Lactic Acid 2.4 H 2.6 H Chloride Anion Gap POC BUN BUN 25 H Glucose 130 H POC Glucose Hemoglobin A1c Calcium 7.9 L Total Protein 5.6 L Albumin Urine Protein Urine Glucose (UA) Urine Ketones Urine Occult Blood Ur Leukocyte Esterase Urine RBC Urine WBC Urine Bacteria Urine Mucus 05/03/17 05/03/17 05/03/17 13:15 12:54 12:54 WBC 3.1 L RBC Hgb Hct RDW 16.3 H Plt Count Gran % 79.1 H [place] % (Auto) 0.4 L Lymph # (Auto) 0.5 L [place] # (Auto) 0 L Band Neutrophils % Lymphocytes % Platelet Estimate RBC Morphology Anisocytosis VBG Lactic Acid 3.6 H Chloride Anion Gap POC BUN BUN Glucose POC Glucose Hemoglobin A1c Calcium Total Protein Albumin Urine Protein 100 A Urine Glucose (UA) >=500 A Urine Ketones 5/tr A Urine Occult Blood 0.03 A Ur Leukocyte Esterase 500 A Urine RBC 59 H Urine WBC > 182 H Urine Bacteria Few A Urine Mucus Many A 05/03/17 05/03/17 12:53 12:43 WBC RBC Hgb Hct RDW Plt Count Gran % [place] % (Auto) Lymph # (Auto) [place] # (Auto) Band Neutrophils % Lymphocytes % Platelet Estimate RBC Morphology Anisocytosis VBG Lactic Acid Chloride 93 L Anion Gap 19.0 H POC BUN 31 H BUN 26 H Glucose 232 H POC Glucose 224 H Hemoglobin A1c 7.9 H Calcium Total Protein Albumin Urine Protein Urine Glucose (UA) Urine Ketones Urine Occult Blood Ur Leukocyte Esterase Urine RBC Urine WBC Urine Bacteria Urine Mucus Microbiology 05/03/17 13:14 Urine - Clean Void Mid-Stream Urine Culture - Preliminary Escherichia coli Gram negative bacillus 05/03/17 12:43 Blood Blood Culture - Preliminary Escherichia coli 05/03/17 13:11 Blood Blood Culture - Preliminary 05/03/17 16:27 Nose MRSA (PCR) - Final Meds: Medications Acetaminophen (Tylenol) 650 mg PO Q6HP PRN PRN Reason: PAIN/FEVER > 101 Last Admin: 05/04/17 19:02 Dose: 650 mg Hydrocodone Bitart/Acetaminophen ([place] 10/325mg) 1 tab PO Q4HP PRN PRN Reason: pain Artificial Tears (Artificial Tears Ophth Drops) 1 gtt OU Q2HP PRN PRN Reason: Dry Eye(s) Last Admin: 05/04/17 16:11 Dose: 1 gtt Aspirin (Aspirin) 81 mg PO DAILY [facility] Last Admin: 05/05/17 08:21 Dose: 81 mg Ceftriaxone Sodium (Rocephin) 2 gm IV DAILY [facility] Last Admin: 05/05/17 08:34 Dose: 2 gm Dextrose (Dextrose 50%) 0 ml IV UD PRN PRN Reason: Hypoglycemia Diagnostic Test (Pha) (Accu-Chek) 1 each FS ACHS [facility] Last Admin: 05/04/17 20:38 Dose: 1 each Duloxetine HCl (Cymbalta) 60 mg PO DAILY [facility] Last Admin: 05/05/17 08:33 Dose: 60 mg Enoxaparin Sodium (Lovenox) 40 mg SQ DAILY [facility] Last Admin: 05/05/17 08:19 Dose: 40 mg Glucose (Insta-Glucose) 15 gm PO PRN PRN PRN Reason: Hypoglycemia Sodium Chloride (Sodium Chloride 0.9%) 1,000 mls @ 100 mls/hr IV .Q10H [facility] Last Admin: 05/05/17 08:37 Dose: 100 mls/hr Insulin Glargine (Lantus) 25 unit SQ DAILY [facility] Last Admin: 05/05/17 08:18 Dose: 25 unit Insulin Human Lispro (Humalog) 0 unit SQ ACHS [facility] PRN Reason: Protocol Last Admin: 05/05/17 08:18 Dose: 2 unit Losartan Potassium (Cozaar) 50 mg PO DAILY [facility] Last Admin: 05/05/17 08:21 Dose: 50 mg Meloxicam (Mobic) 15 mg PO DAILY [facility] Last Admin: 05/05/17 08:33 Dose: 15 mg Omeprazole (Prilosec) 40 mg PO ACB [facility] Last Admin: 05/05/17 08:00 Dose: 40 mg Ondansetron HCl (Zofran) 4 mg IV Q4HP PRN PRN Reason: Nausea And Vomiting Alfuzosin Hcl [ Alfuzosin Hcl Er] 10 Mg Tablet 1 dose PO DAILY [facility] Last Admin: 05/04/17 11:45 Dose: Not Given Budesonide/Formoterol ( Symbicort 160-4.5 Mcg) Inhaler 2 dose INH BID [facility] Last Admin: 05/05/17 08:34 Dose: 2 dose Simvastatin (Zocor) 20 mg PO HS [facility] Last Admin: 05/04/17 20:45 Dose: 20 mg Spironolactone (Aldactone) 25 mg PO BID [facility] Last Admin: 05/05/17 08:21 Dose: 25 mg Medical - PN: A/P (1) Sepsis Status: Acute Current Visit: Yes (2) UTI (urinary tract infection) Status: Acute Current Visit: Yes (3) Chronic respiratory failure with hypoxia Status: Chronic Current Visit: Yes (4) 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 Anne Status: Chronic Current Visit: No - Narrative A/P Narrative: 71-year-old male with multiple medical problems, presenting with abrupt onset of dyspnea, lightheadedness, found to be leukopenic with fever, tachycardia and elevated lactate consistent with sepsis, apparent urinary source. Sepsis from urinary source. Gram negative/E. coli sepsis with bacteremia. Sepsis resolved, improving. Anticipate need for 2 weeks abx, though may be able to finish with PO course. Plan: Surveillance cultures today, saline lock, continue with ceftriaxone, follow up final sensitivities, transfer to med/surg BPH with lower urinary tract symptoms. Patient with variable PVRs. No need for repeat catheter currently. Plan: Continue alpha ebony, continue to monitor PVR. Type 2 diabetes mellitus with neuropathy. On metformin, glipizide and Levemir at home. Plan: Continue Levemir and sliding scale insulin, controlled carbohydrate diet; hold metformin and glipizide during acute illness. Hypertension. Blood pressure is initially elevated at presentation, has now normalized. Plan: Continue losartan, hold for hypotension. COPD with chronic hypoxic respiratory failure at night. Uses O2 at 2 L/m night Plan: Oxygen protocol, maintain sats above 90%, continue home regimen. Autoimmune disease with immunosuppression on weekly methotrexate. Symptoms appear quiesced and at this point. Plan: Hold methotrexate with acute sepsis. Prophylaxis: Lovenox, PPI Medical - PN: Qual - VTE Deep Vein Thrombosis/Pulmonary Embolism Present on Admission: No
[2017-05-05] MEDS: ALFUZOSIN HCL 10 MG PO SCH (10:51)
[2017-05-05] MEDS ORDERED: ACETAMINOPHEN 325 MG TABLET PO PRN (11:11)
[2017-05-05] MEDS ORDERED: HYDROcodone/APAP 10/325MG TABLET PO PRN (11:11)
[2017-05-05] MEDS ORDERED: DEXTROSE 31 GM ORAL.SUSP PO PRN (11:11)
[2017-05-05] MEDS ORDERED: DEXTROSE 50% 50 ML VIAL IV PRN (11:11)
[2017-05-05] MEDS ORDERED: ONDANSETRON 4 MG/2 ML VIAL IV PRN (11:11)
[2017-05-05] MEDS: SIMVASTATIN 20 MG TABLET PO SCH (21:59)
[2017-05-06 05:35] LABS: Mean Cell Volume 92.3 fL (80.0-100.0); Mean Corpuscular HGB Conc 33.1 g/dL (31.0-36.0); Mean Corpuscular Hemoglobin 30.6 pg (26.0-34.0); Platelet Count 108 K/mcL (140-440); RBC 3.75 M/mcL (4.50-5.90); Red Cell Distribution Width 16.4 % (11.5-14.5)
[2017-05-06 06:27] LABS: ALT/SGPT 22 U/l (0-40); Albumin 3.3 gm/dL (3.2-5.2); Albumin/Globulin Ratio 1.3 (1.0-2.3); Alkaline Phosphatase 75 U/L (39-117); Blood Urea Nitrogen 13 mg/dl (8-23)
[2017-05-06] MEDS: INSULIN LISPRO 1 UNIT/0.01 ML UNIT SQ SCH ×4 (08:10→21:20)
[2017-05-06] MEDS: OMEPRAZOLE 20 MG CAPSULE PO SCH (08:10)
[2017-05-06 08:21] LABS: Anisocytosis 1+ (NONE SEEN); Band Neutrophils % 2 % (0-10); Eosinophils % (Manual) 2 % (0-7); Lymphocytes % 4 % (15-49); Metamyelocytes % 1 % (0-0); Monocytes % (Manual) 5 % (1-12); Platelet Estimate DECREASED (NORMAL); RBC Morphology ABNORM (NORMAL); Segmented Neutrophils % 86 % (38-78)
[2017-05-06] MEDS ORDERED: cefTRIAXone 2 GM VIAL IV SCH (09:00)
[2017-05-06] MEDS: INSULIN GLARGINE, HUMAN 1 UNIT/0.01 ML SQ SCH (09:48)
[2017-05-06] MEDS: DULoxetine 30 MG CAPSULE PO SCH (09:48)
[2017-05-06] MEDS: SPIRONOLACTONE 25 MG TABLET PO SCH ×2 (09:48→21:08)
[2017-05-06] MEDS: ASPIRIN 81 MG TAB.CHEW PO SCH (09:48)
[2017-05-06] MEDS: LOSARTAN 50 MG TABLET PO SCH (09:48)
[2017-05-06] MEDS: MELOXICAM 7.5 MG TABLET PO SCH (09:49)
[2017-05-06] MEDS: ENOXAPARIN 40 MG/0.4 ML SYRINGE SQ SCH (09:49)
[2017-05-06] MEDS: BUDESONIDE INH SCH ×2 (09:50→21:10)
[2017-05-06] MEDS: FORMOTEROL INH SCH ×2 (09:50→21:10)
[2017-05-06] MEDS: POLYVINYL ALCOHOL OPHTH DROPS 15ML BOTTLE OU PRN ×2 (09:52→21:09)
[2017-05-06] MEDS: ALFUZOSIN HCL 10 MG PO SCH (10:01)
[2017-05-06] MEDS: LEVOFLOXACIN 500 MG TABLET PO SCH (11:11)
--- NOTE | 2017-05-06 14:51 | Internal Med Progress Note ---
Medical - PN: Subj Patient information: Note initiated : 05/06/17 at 2:49 pm Service Date, if different from initiated Date: [] Patient: Grayson Davila a 71 y/o M admitted on 05/03/17 for sob. Chief Complaint: follow-up UTI/sepsis/bacteremia Interval history: May 03 Mr. Davila is a 71 year old M with a history of hypertension, immune disease/ arteritis, COPD with chronic nocturnal hypoxia on oxygen, type 2 diabetes, bladder cancer status post cystoscopic resection on April 23 who presents with acute onset of symptoms. The patient had cystoscopy with resection of bladder tumors which were discovered after he had hematuria. This was done on April 23. Given his history of enlarged prostate, Singletary catheter was left in place for a week. He was seen in follow-up yesterday and [place] in the Singletary catheter was removed. He was on antibiotics for the first 5 days of his catheter being in place. He states that he did have a little bit of discharge around the urethral meatus while the catheter was in place. He did well afterwards. He is up about 5 times a night voiding. About 11:30 this morning he felt like he needed to have a bowel movement, walked in the bathroom, as he sat on the commode he had the onset of severe lower back pain running across the back just above the buttocks. He developed nausea but did not have emesis. He came in to the living room, to lay down. His noted that his lips had a bluish tint to them. He had chills and was shaking so badly she is unable to get an accurate blood pressure. I received a history of him having some pain in the center of the chest, however the patient denies having any chest pain. Because of his symptoms, his drove him to the emergency department as a live just a few minutes away, by 12:30 he was in the ED. Upon arrival, the patient was febrile with a temperature to 100.5, tachycardic with a pulse 130-140, with oxygen saturations in the low 90s. Given the history of chest pain, there is concern for PE, which was ruled out by CT angiogram. However, further evaluation revealed leukopenia as well as a floridly abnormal urine analysis. His lactate was elevated at 3.8. He was started on treatment for sepsis from presumptive urinary source. May 04 Patient's blood cultures came positive just after midnight with gram-negative rods. Lactate fluctuated before normalizing. AM labs with significant leukocytosis and bandemia now. He feels much better this morning. Still some lower abdominal pain at times, this improves after voiding. May represent bladder spasm. Had a normal bowel movement yesterday. No fevers or chills. Appetite is good. May 05 Feeling better today. Blood and urine cultures with E. coli, sensitivity pending. No further lower abdomen/bladder spasm. Feeling pretty good at this time. No f/c, no n/v, no abdominal pain; having normal BM's May 06 Complaints. Moved out to the floor yesterday. Eating well. Voiding without difficulty. Blood and urine cultures with Escherichia coli, pansensitive except to ampicillin. - Constitutional Vitals: Vital Signs Temp Pulse Resp BP Pulse Ox 98.6 F 116 H 18 112/65 95 05/06/17 10:55 05/06/17 03:25 05/06/17 10:55 05/06/17 10:55 05/06/17 10:55 Period Temp Pulse Resp BP Sys/Bo Pulse Ox Last 24 Hr 97.8 F-99.2 F 109-116 18-20 112-160/65-96 91-96 Intake and Output 05/06/17 05/06/17 05/06/17 05:59 13:59 21:59 Intake Total 800 / 800 1640 / 1640 Output Total 1525 / 1525 1800 / 1800 Balance -725 / -725 -160 / -160 Intake & Output: Intake & Output 05/06/17 05/06/17 05/06/17 05:59 13:59 21:59 Intake Total 800 / 800 1640 / 1640 Output Total 1525 / 1525 1800 / 1800 Balance -725 / -725 -160 / -160 Intake: Oral 800 / 800 1640 / 1640 Output: Void Amount 1525 / 1525 1800 / 1800 Other: Meal Breakfast Percent of Meal Consumed 100% # Voids 1 Exam: General: Sitting in chair in no acute distress Chest: Clear, respirations unlabored Cardiovascular: Regular, no edema Abdomen: Active bowel sounds, nontender Neuro: Alert, oriented 3, nonfocal Medical - PN: Obj Da - Labs CBC & Chem 7: 05/06/17 04:20 05/06/17 04:20 Labs: Abnormal Lab Results 05/06/17 05/06/17 05/05/17 04:20 04:20 03:34 WBC RBC 3.75 L 3.89 L Hgb 11.5 L 11.9 L Hct 34.7 L 36.4 L RDW 16.4 H 16.6 H Plt Count 108 L 96 L Seg Neutrophils % 86 H Band Neutrophils % Lymphocytes % 4 L 8 L Metamyelocytes % 1 H Platelet Estimate Decreased A Decreased A RBC Morphology Abnorm A Abnorm A Anisocytosis 1+ A 1+ A VBG Lactic Acid BUN Creatinine 0.6 L Glucose 137 H Hemoglobin A1c Calcium Total Protein 5.8 L Albumin 05/05/17 05/04/17 05/04/17 03:34 04:00 04:00 WBC 15.1 H RBC 3.69 L Hgb 11.6 L Hct 34.2 L RDW 16.6 H Plt Count 111 L Seg Neutrophils % Band Neutrophils % 18 H Lymphocytes % 2 L Metamyelocytes % Platelet Estimate Decreased A RBC Morphology Abnorm A Anisocytosis 2+ A VBG Lactic Acid BUN 25 H Creatinine Glucose 141 H 130 H Hemoglobin A1c Calcium 8.5 L 7.9 L Total Protein 5.6 L Albumin 3.1 L 05/03/17 05/03/17 05/03/17 23:15 20:19 12:43 WBC RBC Hgb Hct RDW Plt Count Seg Neutrophils % Band Neutrophils % Lymphocytes % Metamyelocytes % Platelet Estimate RBC Morphology Anisocytosis VBG Lactic Acid 2.4 H 2.6 H BUN Creatinine Glucose Hemoglobin A1c 7.9 H Calcium Total Protein Albumin Microbiology 05/03/17 13:11 Blood Blood Culture - Preliminary 05/05/17 11:20 Blood Blood Culture - Preliminary 05/05/17 11:25 Blood Blood Culture - Preliminary 05/03/17 13:14 Urine - Clean Void Mid-Stream Urine Culture - Final Escherichia coli 05/03/17 12:43 Blood Blood Culture - Preliminary Escherichia coli 05/03/17 16:27 Nose MRSA (PCR) - Final Meds: Medications Acetaminophen (Tylenol) 650 mg PO Q6HP PRN PRN Reason: PAIN/FEVER > 101 Hydrocodone Bitart/Acetaminophen (Leary 10/325mg) 1 tab PO Q4HP PRN PRN Reason: pain Artificial Tears (Artificial Tears Ophth Drops) 1 gtt OU Q2HP PRN PRN Reason: Dry Eye(s) Last Admin: 05/06/17 09:52 Dose: 1 gtt Aspirin (Aspirin) 81 mg PO DAILY [facility] Last Admin: 05/06/17 09:48 Dose: 81 mg Dextrose (Dextrose 50%) 0 ml IV UD PRN PRN Reason: Hypoglycemia Diagnostic Test (Pha) (Accu-Chek) 1 each FS ACHS [facility] Last Admin: 05/06/17 11:57 Dose: 1 each Duloxetine HCl (Cymbalta) 60 mg PO DAILY [facility] Last Admin: 05/06/17 09:48 Dose: 60 mg Enoxaparin Sodium (Lovenox) 40 mg SQ DAILY [facility] Last Admin: 05/06/17 09:49 Dose: 40 mg Glucose (Insta-Glucose) 15 gm PO PRN PRN PRN Reason: Hypoglycemia Insulin Glargine (Lantus) 25 unit SQ DAILY [facility] Last Admin: 05/06/17 09:48 Dose: 25 unit Insulin Human Lispro (Humalog) 0 unit SQ [facility] PRN Reason: Protocol Last Admin: 05/06/17 12:40 Dose: 6 unit Levofloxacin (Levaquin) 500 mg PO DAILY [facility] Last Admin: 05/06/17 11:11 Dose: 500 mg Losartan Potassium (Cozaar) 50 mg PO DAILY [facility] Last Admin: 05/06/17 09:48 Dose: 50 mg Meloxicam (Mobic) 15 mg PO DAILY [facility] Last Admin: 05/06/17 09:49 Dose: 15 mg Omeprazole (Prilosec) 40 mg PO ACB [facility] Last Admin: 05/06/17 08:10 Dose: 40 mg Ondansetron HCl (Zofran) 4 mg IV Q4HP PRN PRN Reason: Nausea And Vomiting Alfuzosin Hcl [ Alfuzosin Hcl Er] 10 Mg Tablet 1 dose PO DAILY [facility] Last Admin: 05/06/17 10:01 Dose: Not Given Budesonide/Formoterol ( Symbicort 160 4.5 Mcg) Inhaler 2 dose INH BID [facility] Last Admin: 05/06/17 09:50 Dose: 2 dose Simvastatin (Zocor) 20 mg PO HS [facility] Last Admin: 05/05/17 21:59 Dose: 20 mg Spironolactone (Aldactone) 25 mg PO BID [facility] Last Admin: 05/06/17 09:48 Dose: 25 mg Medical - PN: A/P (1) Sepsis Status: Resolved Current Visit: Yes (2) UTI (urinary tract infection) Status: Acute Current Visit: Yes (3) Chronic respiratory failure with hypoxia Status: Chronic Current Visit: Yes (4) 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 Anne Status: Chronic Current Visit: No - Narrative A/P Narrative: 71-year-old male with multiple medical problems, presenting with abrupt onset of dyspnea, lightheadedness, found to be leukopenic with fever, tachycardia and elevated lactate consistent with sepsis, apparent urinary source. Sepsis from urinary source. Gram negative/E. coli sepsis with bacteremia. Sepsis resolved. Anticipate need for 2 weeks abx, should be able to finish with PO course. Plan: Surveillance cultures remain NGTD; change to levofloxacin orally and monitor for stability while following surveillance cultures to 48 hrs. BPH with lower urinary tract symptoms. Patient with variable PVRs. No need for repeat catheter currently. Plan: Continue alpha ebony, continue to monitor PVR. Type 2 diabetes mellitus with neuropathy. On metformin, glipizide and Levemir at home. Plan: Continue Levemir and sliding scale insulin, controlled carbohydrate diet; add back metformin and glipizide. Hypertension. Blood pressure is initially elevated at presentation, has now normalized. Plan: Continue losartan, hold for hypotension. COPD with chronic hypoxic respiratory failure at night. Uses O2 at 2 L/m night Plan: Oxygen protocol, maintain sats above 90%, continue home regimen. Autoimmune disease with immunosuppression on weekly methotrexate. Symptoms appear quiesced and at this point. Plan: Hold methotrexate with acute sepsis. Prophylaxis: Lovenox, PPI Medical - PN: Qual - VTE Deep Vein Thrombosis/Pulmonary Embolism Present on Admission: No
[2017-05-06] MEDS: SIMVASTATIN 20 MG TABLET PO SCH (21:09)
[2017-05-07 06:10] LABS: Mean Cell Volume 91.8 fL (80.0-100.0); Mean Corpuscular HGB Conc 33.2 g/dL (31.0-36.0); Mean Corpuscular Hemoglobin 30.5 pg (26.0-34.0); Platelet Count 143 K/mcL (140-440); RBC 4.04 M/mcL (4.50-5.90); Red Cell Distribution Width 16.3 % (11.5-14.5)
[2017-05-07 06:32] LABS: ALT/SGPT 40 U/l (0-40); Albumin 3.4 gm/dL (3.2-5.2); Albumin/Globulin Ratio 1.1 (1.0-2.3); Alkaline Phosphatase 85 U/L (39-117); Blood Urea Nitrogen 17 mg/dl (8-23)
[2017-05-07 06:56] LABS: Anisocytosis 1+ (NONE SEEN); Band Neutrophils % 4 % (0-10); Eosinophils % (Manual) 1 % (0-7); Lymphocytes % 16 % (15-49); Monocytes % (Manual) 13 % (1-12); Platelet Estimate NORMAL (NORMAL); RBC Morphology ABNORM (NORMAL); Segmented Neutrophils % 66 % (38-78)
[2017-05-07] MEDS: OMEPRAZOLE 20 MG CAPSULE PO SCH (07:42)
[2017-05-07] MEDS: INSULIN LISPRO 1 UNIT/0.01 ML UNIT SQ SCH ×2 (07:59→12:37)
[2017-05-07] MEDS: LOSARTAN 50 MG TABLET PO SCH (08:37)
[2017-05-07] MEDS: ENOXAPARIN 40 MG/0.4 ML SYRINGE SQ SCH (08:37)
[2017-05-07] MEDS: INSULIN GLARGINE, HUMAN 1 UNIT/0.01 ML SQ SCH (08:37)
[2017-05-07] MEDS: DULoxetine 30 MG CAPSULE PO SCH (08:37)
[2017-05-07] MEDS: MELOXICAM 7.5 MG TABLET PO SCH (08:37)
[2017-05-07] MEDS: SPIRONOLACTONE 25 MG TABLET PO SCH (08:37)
[2017-05-07] MEDS: ASPIRIN 81 MG TAB.CHEW PO SCH (08:37)
[2017-05-07] MEDS: LEVOFLOXACIN 500 MG TABLET PO SCH (08:37)
[2017-05-07] MEDS: BUDESONIDE INH SCH (08:38)
[2017-05-07] MEDS: FORMOTEROL INH SCH (08:38)
[2017-05-07] MEDS: ALFUZOSIN HCL 10 MG PO SCH (08:38)
[2017-05-07] MEDS: POLYVINYL ALCOHOL OPHTH DROPS 15ML BOTTLE OU PRN (08:42)
--- NOTE | 2017-05-07 12:07 | Discharge Summary ---
Medical - DS: Prov Patient information: Note initiated : 05/07/17 at 12:06 pm Service Date, if different from initiated Date: [] Patient: Grayson Davila 71 y/o M admitted on 05/03/17 for SOB/Sepsis, UTI. Date of admission: 05/03/17 15:55 Discharge date: 05/07/17 Primary care physician: Herve Saldaña Admitting clinician: Grace Ring Consults: 05/03/17 14:39 Consult to Physician [CONS] Stat Comment: Consulting Provider: Grace Ring Reason For Exam: Physician to Consult Discharging clinician: Grace Ring Medical - DS: Meds - Discharge Medications Prescriptions: Levofloxacin [Levaquin] 500 mg PO DAILY #9 tab Active and Home Medications: Home Medications Freestyle flash test strips 1 each MISCELLANE .COMPLEX 11/01/14 [History Confirmed 05/03/17 Last Taken 08/19/15] aspirin 81 mg tablet,delayed release 81 mg PO QDAY tab 11/01/14 [History Confirmed 05/03/17 Last Taken 05/03/17 07:30] meloxicam 15 mg tablet 15 mg PO QDAY tab 11/01/14 [History Confirmed 05/03/17 Last Taken 05/03/17 07:30] multivitamin 1 tab PO DAILY 11/01/14 [History Confirmed 05/03/17 Last Taken 07:30] Calcium Carbonate/Vitamin D3 [Calcium 500-Vit D3 400 Tablet] See Dose Instructions PO BID tab 03/21/15 [History Confirmed 05/03/17 Last Taken 07:30] amoxicillin 500 mg tablet 2,000 mg PO .COMPLEX tab 03/21/15 [History Confirmed 05/03/17 Last Taken Unknown] Methotrexate Sodium [Methotrexate] 25 mg PO QWEEK tab 04/18/16 [History Confirmed 05/03/17 Last Taken 04/29/17 18:00] ascorbic acid (vitamin C) 1,000 mg tablet 1,000 mg PO QDAY tab 04/18/16 [ History Confirmed 05/03/17 Last Taken 05/03/17 07:30] cyanocobalamin (vit B-12) 5,000 mcg sublingual tablet 500 mcg SUBLINGUAL QDAY [History Confirmed 05/03/17 Last Taken 05/03/17 07:30] simvastatin 20 mg tablet 20 mg PO QPM #90 tab 05/21/16 [Rx Confirmed 05/03/17 Last Taken 05/02/17 18:00] alfuzosin ER 10 mg tablet,extended release 24 hr 10 mg PO QDAY 30 Days #30 tab 08/16/16 [History Confirmed 05/03/17 Last Taken 05/02/17 18:00] ipratropium bromide 42 mcg (0.06 %) nasal spray 1 spray INTRANASAL QID 30 Days ml 08/16/16 [History Confirmed 05/04/17 Last Taken 05/03/17 08:00] metformin ER 500 mg tablet,extended release 24hr 1,000 mg PO QDAY #180 tab 09/03 [Rx Confirmed 05/03/17 Last Taken 05/02/17 18:00] omeprazole 40 mg capsule,delayed release 40 mg PO QDAY #90 cap 09/03/16 [Rx Confirmed 05/03/17 Last Taken 05/03/17 06:30] spironolactone 25 mg tablet 25 mg PO BID 90 Days #180 tab 11/05/16 [Rx Confirmed 05/03/17 Last Taken 05/03/17 07:30] glipizide ER 5 mg tablet, extended release 24 hr 5 mg PO BID #180 tab 11/27/16 [ Rx Confirmed 05/03/17 Last Taken 05/03/17 07:30] budesonide-formoterol HFA 160 mcg-4.5 mcg/actuation aerosol inhaler 2 puff INHALATION BID #10.2 g 04/12/17 [Rx Confirmed 05/04/17 Last Taken 05/03/17 08:00 ] hydrocodone 10 mg-acetaminophen 325 mg tablet 1 tab PO BID PRN #90 tab 04/12/17 [Rx Confirmed 05/04/17 Last Taken 05/03/17 09:30] losartan 50 mg tablet 50 mg PO QDAY 90 Days #90 tab 04/15/17 [Rx Confirmed 05/03 Last Taken 05/03/17 07:30] duloxetine 60 mg capsule,delayed release 60 mg PO QDAY #90 cap 04/22/17 [Rx Confirmed 05/03/17 Last Taken 05/03/17 07:30] Oxygen at HS 1 pkg .ROUTE .MEDSUPPLY 05/03/17 [History Confirmed 05/03/17 Last Taken Unknown] Pen Needle, Diabetic [Unifine Pentips Plus] 0 unit .ROUTE .MEDSUPPLY 05/03/17 [ History Confirmed 05/03/17 Last Taken Unknown] insulin detemir 100 unit/mL (3 mL) subcutaneous pen 25 unit SUB-Q QDAY #22.5 ml 05/03/17 [Rx Confirmed 05/04/17 Last Taken 05/03/17 08:00] Medical - DS: Hosp Hospital course: May 03 Mr. Davila is a 71 year old M with a history of hypertension, immune disease/ arteritis, COPD with chronic nocturnal hypoxia on oxygen, type 2 diabetes, bladder cancer status post cystoscopic resection on April 23 who presents with acute onset of symptoms. The patient had cystoscopy with resection of bladder tumors which were discovered after he had hematuria. This was done on April 23. Given his history of enlarged prostate, Singletary catheter was left in place for a week. He was seen in follow-up yesterday and [place] in the Singletary catheter was removed. He was on antibiotics for the first 5 days of his catheter being in place. He states that he did have a little bit of discharge around the urethral meatus while the catheter was in place. He did well afterwards. He is up about 5 times a night voiding. About 11:30 this morning he felt like he needed to have a bowel movement, walked in the bathroom, as he sat on the commode he had the onset of severe lower back pain running across the back just above the buttocks. He developed nausea but did not have emesis. He came in to the living room, to lay down. His noted that his lips had a bluish tint to them. He had chills and was shaking so badly she is unable to get an accurate blood pressure. I received a history of him having some pain in the center of the chest, however the patient denies having any chest pain. Because of his symptoms, his drove him to the emergency department as a live just a few minutes away, by 12:30 he was in the ED. Upon arrival, the patient was febrile with a temperature to 100.5, tachycardic with a pulse 130-140, with oxygen saturations in the low 90s. Given the history of chest pain, there is concern for PE, which was ruled out by CT angiogram. However, further evaluation revealed leukopenia as well as a floridly abnormal urine analysis. His lactate was elevated at 3.8. He was started on treatment for sepsis from presumptive urinary source. May 04 Patient's blood cultures came positive just after midnight with gram-negative rods. Lactate fluctuated before normalizing. AM labs with significant leukocytosis and bandemia now. He feels much better this morning. Still some lower abdominal pain at times, this improves after voiding. May represent bladder spasm. Had a normal bowel movement yesterday. No fevers or chills. Appetite is good. May 05 Feeling better today. Blood and urine cultures with E. coli, sensitivity pending. No further lower abdomen/bladder spasm. Feeling pretty good at this time. No f/c, no n/v, no abdominal pain; having normal BM's May 06 No complaints. Moved out to the floor yesterday. Eating well. Voiding without difficulty. Blood and urine cultures with Escherichia coli, pansensitive except to ampicillin. May 07 Continues to do well overnight. Transition to oral antibiotics yesterday, remains afebrile. Surveillance cultures remain without growth. Plan is to discharge home with total 14 days of therapy for Escherichia coli urinary infection with bacteremia. Resolved sepsis from Escherichia coli bloodstream infection and urinary infection. Discharge diagnosis: Sepsis secondary to E. coli urine and blood stream infection - Time Spent with Patient Total time spent providing and/or coordinating discharge services: Greater than 30 minutes Medical - DS: Exam - Constitutional Vitals: Vital Signs Temp Pulse Resp BP BP Pulse Ox 05/07/17 11:33 97.1 F 16 149/83 95 05/07/17 06:56 97.3 F 165/84 95 05/07/17 03:46 98.4 F 92 H 14 145/74 93 05/06/17 23:29 98.7 F 95 H 14 155/81 94 05/06/17 20:00 98.6 F 95 H 14 161/78 94 05/06/17 15:00 98.1 F 20 144/77 96 Intake and Output 05/06/17 05/07/17 05/07/17 21:59 05:59 13:59 Intake Total 810 / 810 300 / 300 Output Total 700 / 700 1400 / 1400 600 / 600 Balance 110 / 110 -1100 / -1100 -600 / -600 Intake: Oral 810 / 810 300 / 300 Output: Void Amount 700 / 700 1400 / 1400 600 / 600 Other: Meal Lunch Percent of Meal Consumed 100% # Voids 1 1 # Bowel Movements 0 Weight 235 lb General appearance: no acute distress, obese - Respiratory Respiratory exam: Present: CTAB. Absent: rales, wheezes - Cardiovascular Cardiovascular exam: Present: normal rate and rhythm. Absent: diastolic murmur , systolic murmur - GI/Abdominal GI/Abdominal exam: Present: normal bowel sounds, soft. Absent: rigid, tenderness - Extremities Exam Extremities exam: Absent: pedal edema - Neurological Exam Neurological exam: Present: altered, CN II-XII intact, oriented X3 Medical - DS: Data Procedures and tests throughout hospitalization: CTA of the chest with no acute abnormality Blood cultures and urine culture positive for Escherichia coli, pansensitive except to ampicillin. Labs on day of discharge: Labs from last 24 hours 05/07/17 05/07/17 04:38 04:38 WBC 8.4 RBC 4.04 L Hgb 12.3 L Hct 37.2 L MCV 91.8 MCH 30.5 MCHC 33.2 RDW 16.3 H Plt Count 143 MPV 7.6 Total Counted 100 Seg Neutrophils % 66 Band Neutrophils % 4 Lymphocytes % 16 Monocytes % (Manual) 13 H Eosinophils % (Manual) 1 Platelet Estimate Normal RBC Morphology Abnorm A Anisocytosis 1+ A Sodium 141 Potassium 4.1 Chloride 100 Carbon Dioxide 29 Anion Gap 12.0 BUN 17 Creatinine 0.7 GFR Calculation 96 Glucose 140 H Calcium 9.5 Total Bilirubin 0.3 AST 37 ALT 40 Alkaline Phosphatase 85 Total Protein 6.5 Albumin 3.4 Globulin 3.1 Albumin/Globulin Ratio 1.1 Preliminary micro results at discharge 05/03/17 13:11 Blood Culture - Preliminary Blood Escherichia coli 05/05/17 11:20 Blood Culture - Preliminary Blood NGTD 05/05/17 11:25 Blood Culture - Preliminary Blood NGTD 05/03/17 12:43 Blood Culture - Preliminary Blood Escherichia coli Medical - DS: A/P - Patient/Caregiver Discharge Instructions Activity: increase activity as tolerated Diet: Consistent Carbohydrate - Problem Maintenance (1) Sepsis Status: Resolved Qualifiers: Sepsis type: Escherichia coli Qualified Code(s): A41.51 - Sepsis due to Escherichia coli [E. coli] (2) UTI (urinary tract infection) Status: Resolved Qualifiers: Urinary tract infection type: site unspecified Hematuria presence: without hematuria Qualified Code(s): N39.0 - Urinary tract infection, site not specified (3) Chronic respiratory failure with hypoxia Status: Chronic (4) BPH with obstruction/lower urinary tract symptoms Status: Chronic (5) DM type 2 (diabetes mellitus, type 2) Status: Chronic Qualifiers: Diabetes mellitus complication status: with circulatory complication Diabetes mellitus complication detail: with other circulatory complications Diabetes mellitus rodent exterminator insulin use: with nursing home use Qualified Code(s) : E11.59 - Type 2 diabetes mellitus with other circulatory complications (6) Autoimmune disease Status: Chronic Comment: Dr. Anne - Follow up Plan Follow up with: Herve Saldñaa MD [Primary Care Provider] - (1 week) Disposition: Home, Self-Care Prognosis: Good Rehab Potential: Good Overall status at discharge: patient is progressing back to baseline Medical - DS: Qual - VTE Deep Vein Thrombosis/Pulmonary Embolism Present on Admission: No
== END 2017-05-07 13:15 | disposition home or self-care (01) | DRG 698 ==
LOC: ED 12:30 → ICU 15:55 → MEDSUR 05-05 14:35
PROVIDERS: ADMIT Internal Medicine; ATTEND Internal Medicine

== ENCOUNTER 2024-03-04 08:34 | Inpatient (IN) ==
[2024-03-04] MEDS ORDERED: IOPAMIDOL 100 ML BOTTLE IV ONE (08:35)
[2024-03-04] MEDS: KETOROLAC 15 MG/ML VIAL IV ONE (08:53)
[2024-03-04 09:01] LABS: Basophils # (Auto) 0.03 K/mcL (0.00-0.30); Basophils % (Auto) 0.3 % (0.0-2.0); Hematocrit 37.9 % (40.1-51.0); Hemoglobin 12.1 g/dL (13.7-17.5); Lymphocytes # (Auto) 0.97 K/mcL (1.50-4.80); Lymphocytes % (Auto) 9.7 % (15.5-49.0); Mean Cell Volume 100.3 fL (80.0-100.0); Mean Corpuscular HGB Conc 31.9 g/dL (31.0-36.0); Mean Platelet Volume 8.7 fL (8.8-12.5); Neutrophils % (Auto) 81.7 % (38.0-78.0); Platelet Count 174 K/mcL (140-440); RBC 3.78 M/mcL (4.63-6.08); Red Cell Distribution Width 14.2 % (11.5-14.5)
[2024-03-04] MEDS: 0.9 % SODIUM CHLORIDE 1,000 ML IV ONE ×2 (09:23→12:27)
[2024-03-04 09:25] LABS: ALT/SGPT 17 U/L (<40); AST/SGOT 28 U/L (<40); Albumin/Globulin Ratio 1.3 (1.0-2.3); Alkaline Phosphatase 50 U/L (39-117); Bilirubin,Total 0.2 mg/dL (0.1-1.0); Blood Urea Nitrogen 21 mg/dL (8-23); C-Reactive Protein 7.51 mg/dL (0.03-0.80); Calcium 9.6 mg/dL (8.6-10.4); Carbon Dioxide 24 mmol/L (22-30); Chloride 95 mmol/L (96-108); Globulin 3.1 gm/dL (2.2-3.7); Glomerular Filtration Rate 87; Glucose 145 mg/dL (70-105); Potassium 5.2 mmol/L (3.3-5.1); Sodium 133 mmol/L (133-145)
[2024-03-04 09:48] LABS: Appearance,Urine Clear (Clear); Bilirubin,Urine Negative (Negative); Color,Urine Yellow; Glucose,Urine (UA) 500 mg/dL (Negative); Ketones,Urine Trace mg/dL (Negative); Leukocyte Esterase,Urine Negative /uL (Negative); Nitrate,Urine Negative (Negative); Protein,Urine Negative (Negative); Urine Blood Negative ery/mcL (Negative); Urine Hyaline Cast 1 /lph (0-2); Urine RBC 0 /hpf (0-3); Urine Squamous Epithelial Cell 0 /hpf (0-4); Urine WBC 0 /hpf (0-4); Urobilinogen,Urine Normal
[2024-03-04] MEDS: cefTRIAXone 1 GM VIAL IV ONE (10:54)
[2024-03-04] MEDS: AZITHROMYCIN 500 MG in DEXTROSE 5% IN WATER 250 ML IV ONE (10:54)
[2024-03-04] MEDS ORDERED: VANCOMYCIN PER PHARMACY IV SCH (14:50)
[2024-03-04] MEDS ORDERED: DEXTROSE 50% 50 ML VIAL IV PRN (14:50)
[2024-03-04] MEDS ORDERED: ONDANSETRON 4 MG/2 ML VIAL IV PRN (14:50)
[2024-03-04] MEDS ORDERED: IPRATROPIUM/ALBUTEROL 3 ML AMPUL.NEB NEB PRN (14:50)
[2024-03-04] MEDS ORDERED: DEXTROSE 31 GM ORAL.SUSP PO PRN (14:50)
[2024-03-04] MEDS: PIPERACILLIN SODIUM/TAZOBACTAM 3.375 GM in DEXTROSE 5% IN WATER 50 ML IV SCH (15:26)
[2024-03-04] MEDS: 0.9 % SODIUM CHLORIDE 1,000 ML IV SCH (15:26)
[2024-03-04] MEDS ORDERED: ALBUTEROL SULFATE 60 PUFF INHALER INH PRN (15:38)
[2024-03-04] MEDS ORDERED: CETIRIZINE 10 MG TABLET PO PRN (15:38)
[2024-03-04] MEDS: SODIUM CHLORIDE 154 MEQ in WATER FOR INJECTION,STERILE 961.5 ML IV SCH (16:02)
[2024-03-04] MEDS: 0.9 % SODIUM CHLORIDE 10 ML SYRINGE IV SCH (16:03)
[2024-03-04] MEDS: PIPERACILLIN SODIUM/TAZOBACTAM 3.375 GM in DEXTROSE 5% IN WATER 50 ML IV ONE (16:03)
[2024-03-04] MEDS: VANCOMYCIN 1,000 MG in 0.9 % SODIUM CHLORIDE 250 ML IV SCH (16:59)
[2024-03-04] MEDS: INSULIN LISPRO 1 UNIT/0.01 ML UNIT SQ SCH (17:00)
[2024-03-04] MEDS: PIPERACILLIN SODIUM/TAZOBACTAM 3.375 GM in DEXTROSE 5% IN WATER 100 ML IV SCH (20:35)
[2024-03-04] MEDS ORDERED: traZODone HCL 50 MG TABLET PO PRN (21:00)
[2024-03-04] MEDS: INSULIN GLARGINE, HUMAN 1 UNIT/0.01 ML SQ SCH (21:17)
[2024-03-04] MEDS: DOCUSATE SODIUM 100 MG CAPSULE PO SCH (21:17)
[2024-03-04] MEDS: glipiZIDE 5 MG TAB.XL.24H PO SCH (21:17)
[2024-03-04] MEDS: SENNOSIDES 1 TABLET PO SCH (21:18)
[2024-03-04] MEDS: SIMVASTATIN 20 MG TABLET PO SCH (21:18)
[2024-03-04] MEDS: KETOROLAC TROMETHAMINE 1 GTT BOTTLE OU SCH (21:23)
[2024-03-05 07:11] LABS: Basophils # (Auto) 0.03 K/mcL (0.00-0.30); Basophils % (Auto) 0.4 % (0.0-2.0); Eosinophils % (Auto) 1.3 % (0.0-7.0); Hematocrit 33.7 % (40.1-51.0); Hemoglobin 10.6 g/dL (13.7-17.5); Lymphocytes # (Auto) 0.63 K/mcL (1.50-4.80); Lymphocytes % (Auto) 8.2 % (15.5-49.0); Mean Cell Volume 101.5 fL (80.0-100.0); Mean Corpuscular HGB Conc 31.5 g/dL (31.0-36.0); Mean Platelet Volume 9.1 fL (8.8-12.5); Monocytes # (Auto) 0.71 K/mcL (0.10-0.90); Monocytes % (Auto) 9.2 % (1.0-12.0); Neutrophils % (Auto) 80.6 % (38.0-78.0); Platelet Count 162 K/mcL (140-440); RBC 3.32 M/mcL (4.63-6.08); Red Cell Distribution Width 14.4 % (11.5-14.5); WBC 7.7 K/mcL (4.5-11.0)
[2024-03-05 07:29] LABS: ALT/SGPT 15 U/L (<40); AST/SGOT 19 U/L (<40); Albumin 3.6 gm/dL (3.2-5.2); Albumin/Globulin Ratio 1.4 (1.0-2.3); Alkaline Phosphatase 43 U/L (39-117); Bilirubin,Total < 0.2 mg/dL (0.1-1.0); Blood Urea Nitrogen 20 mg/dL (8-23); Calcium 8.8 mg/dL (8.6-10.4); Carbon Dioxide 26 mmol/L (22-30); Chloride 100 mmol/L (96-108); Globulin 2.5 gm/dL (2.2-3.7); Glomerular Filtration Rate 91; Glucose 75 mg/dL (70-105); Potassium 4.4 mmol/L (3.3-5.1); Sodium 135 mmol/L (133-145)
[2024-03-05] MEDS: OMEPRAZOLE 20 MG CAPSULE PO SCH (07:41)
[2024-03-05 08:20] LABS: Estimated Average Glucose(eAG) 140 mg/dL; Hemoglobin A1C 6.5 % Hgb (4.0-6.0)
[2024-03-05] MEDS: CALCIUM W/VIT D3 500 MG TABLET PO SCH (09:14)
[2024-03-05] MEDS: FOLIC ACID 1 MG TABLET PO SCH (09:15)
[2024-03-05] MEDS: DULoxetine 30 MG CAPSULE PO SCH (09:15)
[2024-03-05] MEDS: ASPIRIN 325 MG ENTERIC COATED TABLET PO SCH (09:16)
[2024-03-05] MEDS: MULTIVIT,THER IRON,CA,FA & MIN 1 TABLET PO SCH (09:17)
[2024-03-05] MEDS: MELOXICAM 7.5 MG TABLET PO SCH (09:17)
[2024-03-05] MEDS: CYANOCOBALAMIN (VITAMIN B-12) 500 MCG TABLET PO SCH (09:18)
[2024-03-05] MEDS: guaiFENesin 600 MG TAB.SR.12H PO SCH (09:18)
[2024-03-05] MEDS: ENOXAPARIN 40 MG/0.4 ML SYRINGE SQ SCH (09:28)
[2024-03-05] MEDS: Empagliflozin [Jardiance] 25 mg tablet PO SCH (09:30)
[2024-03-05] MEDS: FLUTICASONE UMECLIDIN VILANTER INH SCH (09:30)
[2024-03-05] MEDS: ACETAMINOPHEN 325 MG TABLET PO PRN (20:57)
[2024-03-06] MEDS: traMADol 50 MG TABLET PO PRN (05:20)
[2024-03-06 06:02] LABS: Basophils # (Auto) 0.02 K/mcL (0.00-0.30); Basophils % (Auto) 0.3 % (0.0-2.0); Eosinophils # (Auto) 0.16 K/mcL (0.00-0.70); Hematocrit 34.8 % (40.1-51.0); Lymphocytes # (Auto) 0.58 K/mcL (1.50-4.80); Lymphocytes % (Auto) 7.3 % (15.5-49.0); Mean Cell Volume 100.9 fL (80.0-100.0); Mean Corpuscular HGB Conc 31.6 g/dL (31.0-36.0); Mean Platelet Volume 8.8 fL (8.8-12.5); Monocytes # (Auto) 0.68 K/mcL (0.10-0.90); Monocytes % (Auto) 8.6 % (1.0-12.0); Neutrophils % (Auto) 81.3 % (38.0-78.0); Platelet Count 163 K/mcL (140-440); RBC 3.45 M/mcL (4.63-6.08); Red Cell Distribution Width 14.2 % (11.5-14.5); WBC 7.9 K/mcL (4.5-11.0)
[2024-03-06 06:43] LABS: ALT/SGPT 17 U/L (<40); AST/SGOT 17 U/L (<40); Albumin 3.5 gm/dL (3.2-5.2); Albumin/Globulin Ratio 1.2 (1.0-2.3); Alkaline Phosphatase 46 U/L (39-117); Bilirubin,Total < 0.2 mg/dL (0.1-1.0); Blood Urea Nitrogen 23 mg/dL (8-23); Calcium 8.9 mg/dL (8.6-10.4); Carbon Dioxide 25 mmol/L (22-30); Chloride 98 mmol/L (96-108); Globulin 2.9 gm/dL (2.2-3.7); Glomerular Filtration Rate 87; Glucose 202 mg/dL (70-105); Sodium 136 mmol/L (133-145)
[2024-03-06 07:41] VITALS: TEMP 97.6
[2024-03-06 12:01] VITALS: O2SAT 98
== END 2024-03-06 14:40 | disposition home or self-care (01) | DRG 871 ==
LOC: ED 08:34 → MEDSUR 14:03
PROVIDERS: ADMIT Internal Medicine; ATTEND Internal Medicine

== ENCOUNTER 2024-03-07 03:44 | Inpatient (IN) ==
[2024-03-07] MEDS: ADENOSINE 3 MG/ML VIAL IV ONE ×4 (04:00→04:42)
[2024-03-07] MEDS: AMIODARONE 150 MG/3 ML VIAL IV ONE ×2 (04:15→04:42)
[2024-03-07] MEDS: AMIODARONE 360 MG in PREMIX 1 BAG IV SCH ×2 (04:41→10:26)
[2024-03-07 05:26] LABS: Basophils # (Auto) 0.04 K/mcL (0.00-0.30); Basophils % (Auto) 0.4 % (0.0-2.0); Eosinophils # (Auto) 0.18 K/mcL (0.00-0.70); Eosinophils % (Auto) 1.9 % (0.0-7.0); Hematocrit 36.5 % (40.1-51.0); Hemoglobin 11.8 g/dL (13.7-17.5); Lymphocytes # (Auto) 0.67 K/mcL (1.50-4.80); Lymphocytes % (Auto) 6.9 % (15.5-49.0); Mean Cell Volume 98.6 fL (80.0-100.0); Mean Corpuscular HGB Conc 32.3 g/dL (31.0-36.0); Mean Platelet Volume 9.5 fL (8.8-12.5); Monocytes # (Auto) 0.95 K/mcL (0.10-0.90); Monocytes % (Auto) 9.8 % (1.0-12.0); Neutrophils % (Auto) 80.4 % (38.0-78.0); Platelet Count 182 K/mcL (140-440); Red Cell Distribution Width 14.1 % (11.5-14.5); WBC 9.7 K/mcL (4.5-11.0)
[2024-03-07 05:58] LABS: ALT/SGPT 21 U/L (<40); AST/SGOT 22 U/L (<40); Albumin 3.8 gm/dL (3.2-5.2); Albumin/Globulin Ratio 1.2 (1.0-2.3); Alkaline Phosphatase 56 U/L (39-117); Bilirubin,Total < 0.2 mg/dL (0.1-1.0); Blood Urea Nitrogen 21 mg/dL (8-23); Calcium 9.1 mg/dL (8.6-10.4); Carbon Dioxide 23 mmol/L (22-30); Chloride 99 mmol/L (96-108); Globulin 3.1 gm/dL (2.2-3.7); Glomerular Filtration Rate 87; Glucose 137 mg/dL (70-105); Potassium 4.1 mmol/L (3.3-5.1); Sodium 135 mmol/L (133-145)
[2024-03-07 06:43] LABS: Appearance,Urine Clear (Clear); Bilirubin,Urine Negative (Negative); Color,Urine Yellow; Glucose,Urine (UA) 500 mg/dL (Negative); Ketones,Urine Negative (Negative); Leukocyte Esterase,Urine Negative /uL (Negative); Mucus,Urine Few /hpf; Nitrate,Urine Negative (Negative); Protein,Urine Negative (Negative); Specific Gravity,Urine 1.015 (1.000-1.035); Urine Blood Negative ery/mcL (Negative); Urine RBC 1 /hpf (0-3); Urine Squamous Epithelial Cell 0 /hpf (0-4); Urine WBC 0 /hpf (0-4); Urobilinogen,Urine Normal
[2024-03-07] MEDS ORDERED: DEXTROSE 31 GM ORAL.SUSP PO PRN (09:11)
[2024-03-07] MEDS ORDERED: SENNOSIDES 1 TABLET PO PRN (09:11)
[2024-03-07] MEDS ORDERED: ONDANSETRON 4 MG/2 ML VIAL IV PRN (09:11)
[2024-03-07] MEDS ORDERED: IPRATROPIUM 2.5 ML AMPUL.NEB NEB PRN (09:11)
[2024-03-07] MEDS ORDERED: guaiFENesin/DEXTROMETHORPHAN 5ML UD CUP PO PRN (09:11)
[2024-03-07] MEDS ORDERED: DEXTROSE 50% 50 ML VIAL IV PRN (09:11)
[2024-03-07] MEDS: APIXABAN 5 MG TABLET PO SCH (09:40)
[2024-03-07] MEDS: DOCUSATE SODIUM 100 MG CAPSULE PO SCH (09:40)
[2024-03-07] MEDS: 0.9 % SODIUM CHLORIDE 1,000 ML IV SCH (10:03)
[2024-03-07] MEDS: SODIUM CHLORIDE 154 MEQ in WATER FOR INJECTION,STERILE 961.5 ML IV SCH ×2 (10:24→14:24)
[2024-03-07] MEDS: PIPERACILLIN SODIUM/TAZOBACTAM 3.375 GM in DEXTROSE 5% IN WATER 50 ML IV ONE (10:25)
[2024-03-07] MEDS: AMIODARONE 360 MG/200 ML BAG IV ONE ×2 (10:26→21:23)
[2024-03-07] MEDS: INSULIN LISPRO 1 UNIT/0.01 ML UNIT SQ SCH (11:44)
[2024-03-07] MEDS ORDERED: METOPROLOL TARTRATE 5 MG/5 ML VIAL IV PRN (13:01)
[2024-03-07] MEDS ORDERED: traMADol 50 MG TABLET PO PRN (13:02)
[2024-03-07] MEDS ORDERED: LABETALOL HCL 20 MG/4 ML VIAL IV PRN (13:04)
[2024-03-07] MEDS ORDERED: 0.9 % SODIUM CHLORIDE 10 ML SYRINGE IV SCH (14:00)
[2024-03-07] MEDS: 0.9 % SODIUM CHLORIDE 10 ML SYRINGE IV SCH (14:24)
[2024-03-07] MEDS: PIPERACILLIN SODIUM/TAZOBACTAM 3.375 GM in DEXTROSE 5% IN WATER 100 ML IV SCH (15:24)
[2024-03-07] MEDS: ACETAMINOPHEN 325 MG TABLET PO PRN (16:44)
[2024-03-08 06:53] LABS: ALT/SGPT 18 U/L (<40); AST/SGOT 19 U/L (<40); Albumin 3.2 gm/dL (3.2-5.2); Albumin/Globulin Ratio 1.2 (1.0-2.3); Alkaline Phosphatase 43 U/L (39-117); Bilirubin,Direct < 0.2 mg/dL (0-0.3); Bilirubin,Total < 0.2 mg/dL (0.1-1.0); Blood Urea Nitrogen 18 mg/dL (8-23); Calcium 8.9 mg/dL (8.6-10.4); Carbon Dioxide 24 mmol/L (22-30); Chloride 103 mmol/L (96-108); Globulin 2.7 gm/dL (2.2-3.7); Glomerular Filtration Rate 97; Glucose 106 mg/dL (70-105); Lactate Dehydrogenase 152 U/L (135-225); Phosphorous 3.5 mg/dL (2.5-4.5); Sodium 138 mmol/L (133-145); Triglycerides 93 mg/dL (<150); Uric Acid 2.5 mg/dL (2.5-8.0)
[2024-03-08] MEDS: PANTOPRAZOLE 40 MG TABLET PO SCH (07:50)
[2024-03-08 07:55] LABS: Hematocrit 32.8 % (40.1-51.0); Hemoglobin 10.4 g/dL (13.7-17.5); Mean Cell Volume 101.2 fL (80.0-100.0); Mean Corpuscular HGB Conc 31.7 g/dL (31.0-36.0); Mean Platelet Volume 9.1 fL (8.8-12.5); Platelet Count 156 K/mcL (140-440); RBC 3.24 M/mcL (4.63-6.08); Red Cell Distribution Width 14.5 % (11.5-14.5); WBC 6.9 K/mcL (4.5-11.0)
[2024-03-08 08:38] LABS: Basophils % (Manual) 2 % (0-2); Lymphocytes % 10 % (15-49); Monocytes % (Manual) 10 % (1-12); Platelet Estimate NORMAL (Normal); RBC Morphology NORMAL (Normal); Segmented Neutrophils % 78 % (38-78)
[2024-03-08] MEDS: METOPROLOL TARTRATE 25 MG TABLET PO SCH (09:53)
[2024-03-08] MEDS: DULoxetine 30 MG CAPSULE PO SCH (09:53)
[2024-03-08] MEDS: OLMESARTAN MEDOXOMIL 20 MG TABLET PO SCH (09:53)
[2024-03-08] MEDS: Fluticasone-Umeclidin-Vilanter [Trelegy Ellipta] Inhaler PO SCH (09:57)
[2024-03-09 06:48] LABS: Lactate Dehydrogenase 162 U/L (135-225)
[2024-03-09 06:51] LABS: Blood Urea Nitrogen 22 mg/dL (8-23); Calcium 9.1 mg/dL (8.6-10.4); Carbon Dioxide 27 mmol/L (22-30); Chloride 101 mmol/L (96-108); Glomerular Filtration Rate 91; Glucose 139 mg/dL (70-105); Potassium 4.2 mmol/L (3.3-5.1); Sodium 137 mmol/L (133-145)
[2024-03-09 08:23] LABS: Prostate Specific Antigen < 0.03 ng/mL (<6.5)
[2024-03-09 13:30] VITALS: TEMP 97; O2SAT 97
[2024-03-11 15:25] LABS: Fungitell (1-3) Assay <31 pg/mL
[2024-03-13 09:01] LABS: Myeloperoxidase ABS <1.0 AI (<1.0); Proteinase-3-AB <1.0 AI (<1.0)
== END 2024-03-09 12:56 | disposition home or self-care (01) | DRG 864 ==
LOC: ED 03:44 → ICU 09:00
PROVIDERS: ADMIT Internal Medicine; ATTEND Internal Medicine

== ENCOUNTER 2025-02-14 07:58 | Inpatient (IN) ==
[2025-02-14] MEDS: 0.9 % SODIUM CHLORIDE 500 ML IV ONE (08:39)
[2025-02-14 09:14] LABS: ALT/SGPT 16 U/L (<40); AST/SGOT 17 U/L (<40); Albumin 3.9 gm/dL (3.2-5.2); Albumin/Globulin Ratio 1.6 (1.0-2.3); Alkaline Phosphatase 56 U/L (39-117); Anion Gap 10.0 (8.0-16.0); Bilirubin,Total 0.2 mg/dL (0.1-1.0); Blood Urea Nitrogen 30 mg/dL (8-23); Calcium 9.8 mg/dL (8.6-10.4); Carbon Dioxide 25 mmol/L (22-30); Chloride 102 mmol/L (96-108); Globulin 2.5 gm/dL (2.2-3.7); Glucose 90 mg/dL (70-105); Potassium 4.2 mmol/L (3.3-5.1); Sodium 137 mmol/L (133-145)
[2025-02-14] MEDS: cefTRIAXone 2 GM in DEXTROSE 5% IN WATER 50 ML IV ONE (09:14)
[2025-02-14] MEDS: AZITHROMYCIN 250 MG TABLET PO ONE (09:18)
[2025-02-14 09:47] LABS: Basophils # (Auto) 0.02 K/mcL (0.00-0.30); Basophils % (Auto) 0.2 % (0.0-2.0); Eosinophils # (Auto) 0.15 K/mcL (0.00-0.70); Eosinophils % (Auto) 1.3 % (0.0-7.0); Hematocrit 38.4 % (40.1-51.0); Hemoglobin 12.4 g/dL (13.7-17.5); Lymphocytes # (Auto) 0.71 K/mcL (1.50-4.80); Lymphocytes % (Auto) 6.1 % (15.5-49.0); Mean Corpuscular HGB Conc 32.3 g/dL (31.0-36.0); Monocytes # (Auto) 0.77 K/mcL (0.10-0.90); Monocytes % (Auto) 6.7 % (1.0-12.0); Neutrophils % (Auto) 85.4 % (38.0-78.0); Platelet Count 90 K/mcL (140-440); RBC 3.99 M/mcL (4.63-6.08); WBC 11.6 K/mcL (4.5-11.0)
[2025-02-14 14:12] LABS: Bacteria,Urine 0 /hpf (0); Bilirubin,Urine NEGATIVE (Negative); Color,Urine LT. YELLOW; Glucose,Urine (UA) 500 mg/dL (Negative); Ketones,Urine NEGATIVE (Negative); Leukocyte Esterase,Urine NEGATIVE /uL (Negative); PH,Urine 6.0 (5.0-9.0); Protein,Urine NEGATIVE (Negative); Specific Gravity,Urine 1.010 (1.000-1.035); Urobilinogen,Urine 0.2 mg/dL
[2025-02-14] MEDS ORDERED: POTASSIUM CHLORIDE 20 MEQ TABLET PO PRN ×2 (14:55)
[2025-02-14] MEDS ORDERED: POLYETHYLENE GLYCOL 3350 17 GM PACKET PO PRN (14:55)
[2025-02-14] MEDS ORDERED: DEXTROSE 31 GM ORAL.SUSP PO PRN (14:55)
[2025-02-14] MEDS ORDERED: SENNOSIDES 1 TABLET PO PRN (14:55)
[2025-02-14] MEDS ORDERED: METOCLOPRAMIDE 10 MG/2 ML VIAL IV PRN (14:55)
[2025-02-14] MEDS ORDERED: POTASSIUM CHLORIDE 40 MEQ in DEXTROSE 5% IN WATER 500 ML IV PRN (14:55)
[2025-02-14] MEDS ORDERED: ACETAMINOPHEN 325 MG TABLET PO PRN (14:55)
[2025-02-14] MEDS ORDERED: ONDANSETRON 4 MG/2 ML VIAL IV PRN (14:55)
[2025-02-14] MEDS ORDERED: DEXTROSE 50% 50 ML VIAL IV PRN (14:55)
[2025-02-14] MEDS ORDERED: MAGNESIUM SULFATE 2 GM/50 ML BAG IV PRN (14:55)
[2025-02-14] MEDS: 0.9 % SODIUM CHLORIDE 10 ML SYRINGE IV SCH (15:50)
[2025-02-14] MEDS: SIMVASTATIN 20 MG TABLET PO SCH (17:05)
[2025-02-14] MEDS: INSULIN LISPRO 1 UNIT/0.01 ML UNIT SQ SCH (17:07)
[2025-02-14] MEDS: BUDESONIDE 0.5 MG/2 ML AMPUL.NEB NEB SCH (21:19)
[2025-02-14] MEDS: TAMSULOSIN 0.4 MG CAPSULE PO SCH (21:27)
[2025-02-14] MEDS: PREGABALIN 100 MG CAPSULE PO SCH (21:27)
[2025-02-14] MEDS: METOPROLOL TARTRATE 25 MG TABLET PO SCH (21:27)
[2025-02-14] MEDS: ENOXAPARIN 40 MG/0.4 ML SYRINGE SQ SCH (21:28)
[2025-02-14] MEDS: KETOROLAC TROMETHAMINE 1 GTT BOTTLE OU SCH (21:28)
[2025-02-14] MEDS: INSULIN GLARGINE, HUMAN 1 UNIT/0.01 ML SQ SCH (21:29)
[2025-02-14] MEDS: DOCUSATE SODIUM 100 MG CAPSULE PO SCH (21:30)
[2025-02-15 06:50] LABS: ALT/SGPT 15 U/L (<40); AST/SGOT 16 U/L (<40); Albumin 3.7 gm/dL (3.2-5.2); Albumin/Globulin Ratio 1.4 (1.0-2.3); Alkaline Phosphatase 48 U/L (39-117); Anion Gap 12.0 (8.0-16.0); Bilirubin,Direct < 0.2 mg/dL (0-0.3); Bilirubin,Total 0.3 mg/dL (0.1-1.0); Blood Urea Nitrogen 21 mg/dL (8-23); Calcium 9.2 mg/dL (8.6-10.4); Carbon Dioxide 23 mmol/L (22-30); Chloride 104 mmol/L (96-108); Globulin 2.6 gm/dL (2.2-3.7); Glucose 128 mg/dL (70-105); Phosphorous 3.6 mg/dL (2.5-4.5); Potassium 4.2 mmol/L (3.3-5.1); Sodium 139 mmol/L (133-145); Triglycerides 67 mg/dL (<150); Uric Acid 4.0 mg/dL (2.5-8.0)
[2025-02-15 07:32] LABS: Basophils # (Auto) 0.01 K/mcL (0.00-0.30); Basophils % (Auto) 0.1 % (0.0-2.0); Eosinophils # (Auto) 0 K/mcL (0.00-0.70); Eosinophils % (Auto) 0 % (0.0-7.0); Hematocrit 36.7 % (40.1-51.0); Hemoglobin 12.0 g/dL (13.7-17.5); Lymphocytes # (Auto) 0.64 K/mcL (1.50-4.80); Lymphocytes % (Auto) 7.3 % (15.5-49.0); Mean Corpuscular HGB Conc 32.7 g/dL (31.0-36.0); Monocytes # (Auto) 0.47 K/mcL (0.10-0.90); Monocytes % (Auto) 5.3 % (1.0-12.0); Neutrophils % (Auto) 86.8 % (38.0-78.0); Platelet Count 81 K/mcL (140-440); RBC 3.84 M/mcL (4.63-6.08); WBC 8.8 K/mcL (4.5-11.0)
[2025-02-15] MEDS: OMEPRAZOLE 20 MG CAPSULE PO SCH (07:44)
[2025-02-15] MEDS: IPRATROPIUM/ALBUTEROL 3 ML AMPUL.NEB NEB PRN (07:53)
[2025-02-15] MEDS: OLMESARTAN MEDOXOMIL 20 MG TABLET PO SCH (08:23)
[2025-02-15] MEDS: SPIRONOLACTONE 25 MG TABLET PO SCH (08:23)
[2025-02-15] MEDS: FLUTICASONE UMECLIDIN VILANTER INH SCH (08:25)
[2025-02-15] MEDS: cefTRIAXone 2 GM in DEXTROSE 5% IN WATER 50 ML IV SCH (09:26)
[2025-02-15] MEDS: AZITHROMYCIN 500 MG in DEXTROSE 5% IN WATER 250 ML IV SCH (09:55)
[2025-02-15] MEDS: FUROSEMIDE 100 MG/10 ML VIAL IV ONE (11:23)
[2025-02-16 06:37] LABS: ALT/SGPT 14 U/L (<40); AST/SGOT 14 U/L (<40); Albumin 3.9 gm/dL (3.2-5.2); Albumin/Globulin Ratio 1.5 (1.0-2.3); Alkaline Phosphatase 49 U/L (39-117); Anion Gap 9.0 (8.0-16.0); Bilirubin,Direct < 0.2 mg/dL (0-0.3); Bilirubin,Total < 0.2 mg/dL (0.1-1.0); Blood Urea Nitrogen 30 mg/dL (8-23); Calcium 9.3 mg/dL (8.6-10.4); Carbon Dioxide 30 mmol/L (22-30); Chloride 101 mmol/L (96-108); Globulin 2.6 gm/dL (2.2-3.7); Glucose 136 mg/dL (70-105); Phosphorous 3.3 mg/dL (2.5-4.5); Potassium 3.8 mmol/L (3.3-5.1); Sodium 140 mmol/L (133-145); Triglycerides 121 mg/dL (<150); Uric Acid 4.5 mg/dL (2.5-8.0)
[2025-02-16 12:33] VITALS: TEMP 98.6; O2SAT 91
== END 2025-02-16 13:00 | disposition home or self-care (01) | DRG 194 ==
LOC: ED 07:58 → MEDSUR 14:42
PROVIDERS: ADMIT Internal Medicine; ATTEND Internal Medicine